=== PATIENT | female | born 1960 | race Caucasian/White ===

== ENCOUNTER → 2019-01-31 | Outpatient (CLI) | payer OTHER ==
--- NOTE | 2019-01-31 09:35 | US ---
EXAMINATION TYPE: US liver DATE OF EXAM: 01/31/2019 COMPARISON: NONE CLINICAL HISTORY: B19.20 viral hepatitis C. EXAM MEASUREMENTS: Liver Length: 12.9 cm Gallbladder Wall: 0.1 cm CBD: 0.5 cm Right Kidney: 10.5 x 3.9 x 4.2 cm Pancreas: Tail obscured by overlying bowel gas Liver: wnl Gallbladder: mobile stones Evidence for sonographic Forbes's sign: no CBD: wnl Right Kidney: lower pole obscured by overlying bowel gas IMPRESSION: 1. Cholelithiasis without sonographic evidence of acute cholecystitis. 2. Visualized portions of the hepatic parenchyma displays a homogeneous echotexture. No discrete mass is seen.
== END | disposition home or self-care (01) ==
LOC: RADUSMAIN 08:22
PROVIDERS: ATTEND Family Medicine
DX: K80.20 Calculus of gallbladder without cholecystitis without obstruction (principal)
CPT/HCPCS: 76705

== ENCOUNTER → 2019-02-26 | Outpatient (CLI) | payer OTHER ==
[2019-02-26 15:50] LABS: HCT 45.9 % (34.0-46.0); HGB 14.7 gm/dL (11.4-16.0); MCH 31.5 pg (25.0-35.0); MCHC 32.1 g/dL (31.0-37.0); Mean Platelet Volume 6.9; Platelet Count 165 k/uL (150-450); RBC 4.68 m/uL (3.80-5.40); RDW 13.7 % (11.5-15.5); WBC 5.2 k/uL (3.8-10.6)
[2019-02-26 16:03] LABS: INR 1.1 (<1.2); Prothrombin Time 11.1 sec (9.0-12.0)
[2019-02-27 01:07] LABS: ALT 137 U/L (8-44); AST 116 U/L (13-35); African American GFR (CKD) 111.5 (60.0-200.0); Albumin/Globulin Ratio 1.39 (1.60-3.17); Alkaline Phosphatase 100 U/L (41-126); Bilirubin, Conjugated <0.20 mg/dL (0.20-0.40); Globulin 3.1 g/dL (1.6-3.3); Total Bilirubin 0.5 mg/dL (0.3-1.2); Total Protein 7.4 g/dL (6.2-8.2)
== END | disposition home or self-care (01) ==
LOC: LABWHC1 15:12
PROVIDERS: ATTEND Physician Assistant
DX: B18.2 Chronic viral hepatitis C (principal)
CPT/HCPCS: 36415; 80076; 82565; 85027; 85610; 87522

== ENCOUNTER → 2019-04-24 | Outpatient (CLI) | payer OTHER | END | disposition home or self-care (01) | LOC: LABWHC1 09:33 | PROVIDERS: ATTEND Surgery Plastic and Reconstructive Surgery | DX: Z01.810 Encounter for preprocedural cardiovascular examination (principal) | CPT/HCPCS: 36415; 93005 ==

== ENCOUNTER 2019-06-13 09:03 | Observation (INO) | payer OTHER ==
[2019-06-11 13:23] VITALS: BMI 30.1
--- NOTE | 2019-06-13 07:36 | P.GSHP ---
History of Present Illness H&P Date: 06/13/19 CHIEF COMPLAINT: Cholecystitis HISTORY OF PRESENT ILLNESS: The patient is a 59-year-old female who presents with history of epigastric including right upper quadrant abdominal pain. She underwent diagnostic studies for her gallbladder. Separately her clinical picture was consistent with cholecystitis. Now she presents for surgical intervention. PAST MEDICAL HISTORY: Please see list PAST SURGICAL HISTORY: Please see list MEDICATIONS: Please see list ALLERGIES: Please see list SOCIAL HISTORY: Please see list FAMILY HISTORY: Please see list REVIEW OF ORGAN SYSTEMS: CONSTITUTIONAL: No reports of fevers or chills. HEENT: Denies any troubles with the vision or hearing. ENDOCRINE: No reports of hypothyroidism. No diabetes. PHYSICAL EXAM: VITAL SIGNS: Afebrile vital signs stable GENERAL: Well-developed pleasant in no acute distress. HEENT: No scleral icterus. Extraocular movements grossly intact. Moist buccal mucosa. NECK: Supple without lymphadenopathy. CHEST: Unlabored respirations. Equal bilateral excursions. CARDIOVASCULAR: Regular rate regular rhythm rhythm. Distal 2+ pulses. ABDOMEN: Soft, nondistended. Tender along the epigastrium and right upper quadrant. MUSCULOSKELETAL: No clubbing, cyanosis, or edema. NEURO: Cranial nerves II to XII within normal limits. No focal or lateralizing signs. PSYCH: Alert and oriented to person, place and time. SKIN: Well-perfused good skin turgor. ASSESSMENT: 1. Epigastric and right upper quadrant abdominal pain 2. Chronic cholecystitis 3. Symptomatic gallstones. PLAN: 1. Will need a robotic cholecystectomy possible open. Benefits and risks were described. 2. Heparin for DVT prophylaxis 5000 units. 3. Antibiotic prophylaxis. Past Medical History Past Medical History: Asthma, GERD/Reflux, Liver Disease Additional Past Medical History / Comment(s): Current Hepatitis, to start tx after surgery. Gallstones. History of Any Multi-Drug Resistant Organisms: None Reported Past Surgical History: Section Additional Past Surgical History / Comment(s): C-S x2. Past Anesthesia/Blood Transfusion Reactions: No Reported Reaction Smoking Status: Former smoker - Past Family History Mother Family Medical History: No Reported History Medications and Allergies Home Medications Medication Instructions Recorded Confirmed Type Albuterol Sulfate [Proair Hfa] 1 - 2 puff INHALATION Q6HR PRN 06/11/19 06/11/19 History Allergies Allergy/AdvReac Type Severity Reaction Status Date / Time morphine Allergy Swelling Verified 06/11/19 12:55 Penicillins Allergy Rash/Hives Verified 06/11/19 12:55 Sulfa (Sulfonamide Allergy Rash/Hives Verified 06/11/19 12:55 Antibiotics)
[~2019-06-13 09:03] MED LIST: ACETAMINOPHEN TAB 500 MG TAB PO STA; GABAPENTIN 300 MG CAP PO STA; HEPARIN SODIUM,PORCINE 5,000 UNIT/ML 1 ML VIAL SQ ONE; INDOCYANINE GREEN 25 MG VIAL IV STA; SCOPOLAMINE 1.5MG/72HR PATCH TRANSDERM STA
[2019-06-13] MEDS: LACTATED RINGERS 1,000 ML IV SCH ×2 (09:24→14:59)
[2019-06-13] MEDS ORDERED: LIDOCAINE 1% 20 ML VIAL (10MG/ML) FOR IV START INTRADERMA ONE (09:24)
[2019-06-13] MEDS ORDERED: DEXAMETHASONE SOD PHOS (MDV) 100 MG/10 ML VIAL IV ONE ×2 (09:30→09:32)
[2019-06-13] MEDS ORDERED: ONDANSETRON 4 MG/2 ML VIAL IVP ONE ×3 (09:30→12:50)
[2019-06-13 09:33] LABS: Basophils # (A) 0.1 k/uL (0-0.2); Basophils % (A) 1 %; Eosinophils # (A) 0.2 k/uL (0-0.7); Eosinophils % (A) 3 %; HCT 44.9 % (34.0-46.0); HGB 15.1 gm/dL (11.4-16.0); Lymphocytes # (A) 2.3 k/uL (1.0-4.8); Lymphocytes % (A) 35 %; MCH 31.7 pg (25.0-35.0); MCHC 33.5 g/dL (31.0-37.0); MCV 94.5 fL (80.0-100.0); Mean Platelet Volume 8.2; Monocytes # (A) 0.3 k/uL (0-1.0); Monocytes % (A) 5 %; Neutrophils # (A) 3.5 k/uL (1.3-7.7); Neutrophils % (A) 53 %; Platelet Count 191 k/uL (150-450); RBC 4.75 m/uL (3.80-5.40); RDW 13.5 % (11.5-15.5); WBC 6.6 k/uL (3.8-10.6)
[2019-06-13 09:50] LABS: ALT 111 U/L (4-34); AST 121 U/L (14-36); African American GFR (CKD) >90 (>60 ml/min/1.73 sqM); Albumin 4.3 g/dL (3.5-5.0); Alkaline Phosphatase 91 U/L (38-126); Anion Gap 9 mmol/L; Blood Urea Nitrogen 14 mg/dL (7-17); Calcium 9.3 mg/dL (8.4-10.2); Carbon Dioxide 23 mmol/L (22-30); Chloride 109 mmol/L (98-107); Glucose 100 mg/dL (74-99); Non-African American GFR(CKD) >90 (>60 ml/min/1.73 sqM); Potassium 4.4 mmol/L (3.5-5.1); Sodium 141 mmol/L (137-145); Total Bilirubin 0.8 mg/dL (0.2-1.3); Total Protein 8.6 g/dL (6.3-8.2)
[2019-06-13] MEDS ORDERED: LIDOCAINE 1% INJ 10MG/ML (20 ML MDV) ONE (09:51)
[2019-06-13] MEDS ORDERED: MIDAZOLAM 2 MG/2 ML VIAL ONE (09:51)
[2019-06-13] MEDS ORDERED: PHENYLEPHRINE-0.9% NACL SYG 1 MG/10 ML SYRINGE ONE (09:51)
[2019-06-13] MEDS ORDERED: HYDROmorphone (PF) 1 MG/ML ONE (09:51)
[2019-06-13] MEDS ORDERED: GLYCOPYRROLATE 0.2 MG/ML 2 ML VIAL ONE (09:51)
[2019-06-13] MEDS ORDERED: NEOSTIGMINE 1 MG/ML 10 ML VIAL ONE (09:51)
[2019-06-13] MEDS ORDERED: ROCURONIUM BROMIDE 10 MG/ML 5 ML VIAL IV ONE (09:51)
[2019-06-13] MEDS ORDERED: fentaNYL (PF) 50 MCG/ML 2 ML AMP ONE (09:51)
[2019-06-13] MEDS ORDERED: PROPOFOL 10 MG/ML 20 ML VIAL IV ONE (09:51)
[2019-06-13] MEDS ORDERED: BUPIVACAINE (PF) 0.25% 30 ML VIAL SQ ONE ×2 (10:13→10:27)
[2019-06-13] MEDS ORDERED: LACTATED RINGERS 1,000 ML IV ONE (11:15)
[2019-06-13] MEDS: HYDROmorphone 1 MG/ML 1 ML SYRINGE IVP ONE ×4 (11:27→11:45)
[2019-06-13] MEDS ORDERED: KETOROLAC 30 MG/ML 1 ML VIAL IVP ONE (12:36)
[2019-06-13] MEDS ORDERED: METOCLOPRAMIDE 5 MG/ML 2 ML VIAL IVP ONE (13:57)
[2019-06-13] MEDS ORDERED: NALOXONE 0.4 MG/ML 1 ML VIAL IV PRN (14:57)
[2019-06-13] MEDS ORDERED: ONDANSETRON 4 MG/2 ML VIAL IVP PRN (14:57)
[2019-06-13] MEDS ORDERED: METOCLOPRAMIDE 5 MG/ML 2 ML VIAL IVP PRN (14:57)
[2019-06-13] MEDS ORDERED: ACETAMINOPHEN TAB 325 MG TAB PO PRN (14:57)
[2019-06-13] MEDS ORDERED: SODIUM CHLORIDE 0.9% 1,000 ML IV ONE (14:59)
--- NOTE | 2019-06-13 15:02 | P.OP ---
Date of Procedure: 06/13/19 Description of Procedure: SURGEON: OPAL GOODWIN MD PREOPERATIVE DIAGNOSES: 1. Right upper quadrant abdominal pain 2. Symptomatic gallstones 3. Chronic cholecystitis 4. Gastroesophageal reflux disease 5. Hepatitis C 6. Asthma POSTOPERATIVE DIAGNOSES: 1. Right upper quadrant abdominal pain 2. Symptomatic gallstones 3. Chronic cholecystitis 4. Gastroesophageal reflux disease 5. Hepatitis C 6. Asthma 7. Cirrhosis of the liver, macronodular disease OPERATION: Robotic-assisted da Kalpana Xi laparoscopic cholecystectomy, multiport with FIREFLY ESTIMATED BLOOD LOSS: 5 mL. SPECIMENS REMOVED: Gallbladder. COMPLICATIONS: None. OPERATIVE FINDINGS: 1. Chronic cholecystitis 2. Macronodular liver disease INDICATIONS: The patient is a 59-year-old female who presents with cholelcystitis. Surgical intervention with a laparoscopic cholecystectomy was described at [facility] including injury to the biliary tree, bleeding, infection, need for further surgery. Informed consent was obtained. Robotic assisted laparoscopic approach was described. Benefits and risks of the procedure including but not limited to bleeding, infection, injury to the biliary tree was described. Informed consent was obtained. DESCRIPTION OF PROCEDURE: Patient was brought to the operating room, placed in supine position. After general induction, the abdomen had been prepped and draped in standard sterile fashion. The robotic da Kalpana XI system was primed. After a timeout protocol was performed, the patient had been prepped and draped in standard sterile fashion. The patient was injected with indocyanine green. A 5 mm 0 degrees laparoscopic trocar entry was performed along the left upper quadrant. The abdomen insufflated to 15 mmHg pressure which was tolerated well. Diagnostic laparoscopy demonstrated no injury to bowel viscera or mesentery. The liver surface was unremarkable. Next, two 8 mm robotic ports were placed along the right upper abdomen. The camera 8-mm port was maintained along the epigastrium. Another 8 mm port was placed along the left upper abdominal wall after exchanging the 5 mm port. Please note that the ports were placed at least 10 to 15 cm away from the target anatomy of the gallbladder. The robot was docked along the left lateral abdomen. The patient was repositioned in reverse Trendelenburg position. Using a grasper for arm 3, a grasper for arm 4, including hook cautery for arm 1, the robotic system was docked and primed as described. Instruments were interchanged by the mail handler assistant including hook cautery, Bovie cautery and clip appliers. I had sat at the console. The gallbladder fundus was retracted over the dome of the liver. Initial attention was brought to the infundibulum which was gently retracted in the inferior lateral approach. Using a grasper, the cystic duct including the cystic artery was carefully skeletonized. FIREFLY was used to identify the cystic artery and cystic structures. A critical view of safety was obtained. Large PLASTIC clips were used throughout the entire case. Using a clip health promotion educator 2 clips were placed proximally, and 1 clip was placed between the infundibulum and cystic duct and divided using cautery. Next, the cystic artery was similarly clipped and cauterized. Electro-Bovie cautery was used to remove the gallbladder from the hepatic fossa. Hemostasis was checked and found to be adequate. The robot was undocked. I re-scrubbed into the case. Using a 10 mm Endo Catch bag via the left upper quadrant incision, the specimen was removed from the abdominal cavity. The fascial defect was oversewn using 0 Vicryl Amando Casas of the left upper quadrant All pneumoperitoneum instruments were evacuated from the abdominal cavity. The incisions were reapproximated using 4-0 Monocryl in an interrupted subcuticular fashion. Please note along the trocar sites, local anesthetic was placed as a field block prior to insertion of all instruments. Liquid glue was applied to the skin. At the end of the procedure needle, sponge, and instrument count had been verified correct by the surgical endoscopist. The patient was transferred to postanesthesia care unit in stable condition. Intraoperative films were shared with the patient's family who were very pleased with the level of care. Plan - Discharge Summary Discharge Rx Participant: No New Discharge Prescriptions: New Acetaminophen Tab [Tylenol Tab] 1,000 mg PO Q6HR PRN #30 tablet PRN Reason: Pain No Action Albuterol Sulfate [Proair Hfa] 1 - 2 puff INHALATION Q6HR PRN PRN Reason: ASTHMA Discharge Medication List Albuterol Sulfate [Proair Hfa] 1 - 2 puff INHALATION Q6HR PRN 06/11/19 [History] Acetaminophen Tab [Tylenol Tab] 1,000 mg PO Q6HR PRN #30 tablet 06/13/19 [Rx] Follow up Appointment(s)/Referral(s): Opal Goodwin MD [STAFF PHYSICIAN] - 06/18/19 Patient Instructions/Handouts: *[facility]gery [facility] - (Anesthesia) Discharge Instructions Outpatient Surgery, *[facility] - Scopalamine Patch Instructions, Laparoscopic Cholecystectomy (DC) Activity/Diet/Wound Care/Special Instructions: No lifting over 10 pounds in 2 weeks until Jun 27. May shower. No bath tub soaks for two weeks until Jun 27 Diet as tolerated. No driving while on narcotics. Use Tylenol and ibuprofen or Aleve scheduled for the next 24-48 hours for best pain relief. Use ice along incisions for the today to prevent swelling. Discharge Disposition: HOME SELF-CARE
[2019-06-13] MEDS ORDERED: SCOPOLAMINE 1.5MG/72HR PATCH TRANSDERM ONE (15:30)
[2019-06-13] MEDS ORDERED: DEXAMETHASONE SOD PHOSPHATE 10 MG/ML 1 ML VIAL IV ONE (15:30)
[2019-06-13] MEDS: KETOROLAC 30 MG/ML 1 ML VIAL IVP SCH ×2 (17:08→23:51)
[2019-06-13] MEDS: SIMETHICONE 80 MG CHEWABLE PO SCH ×2 (17:10→21:37)
[2019-06-13] MEDS: D5-0.45% NACL WITH KCL 20MEQ/L 1,000 ML IV SCH (23:51)
[2019-06-14] MEDS: KETOROLAC 30 MG/ML 1 ML VIAL IVP SCH (05:06)
[2019-06-14] MEDS: D5-0.45% NACL WITH KCL 20MEQ/L 1,000 ML IV SCH (05:07)
[2019-06-14 07:31] VITALS: BP 104/60; PULSE 63; RESP 17; TEMP 97.8
[2019-06-14 08:48] LABS: Basophils % (A) 0 %; Eosinophils % (A) 0 %; HCT 42.3 % (34.0-46.0); HGB 13.8 gm/dL (11.4-16.0); Lymphocytes # (A) 1.2 k/uL (1.0-4.8); Lymphocytes % (A) 15 %; MCH 31.6 pg (25.0-35.0); MCHC 32.6 g/dL (31.0-37.0); MCV 96.8 fL (80.0-100.0); Mean Platelet Volume 8.7; Monocytes # (A) 0.4 k/uL (0-1.0); Monocytes % (A) 5 %; Neutrophils # (A) 6.2 k/uL (1.3-7.7); Neutrophils % (A) 78 %; Platelet Count 155 k/uL (150-450); RBC 4.37 m/uL (3.80-5.40); RDW 13.3 % (11.5-15.5)
[2019-06-14 09:09] LABS: ALT 78 U/L (4-34); African American GFR (CKD) >90 (>60 ml/min/1.73 sqM); Anion Gap 9 mmol/L; Blood Urea Nitrogen 10 mg/dL (7-17); Calcium 8.9 mg/dL (8.4-10.2); Carbon Dioxide 20 mmol/L (22-30); Chloride 110 mmol/L (98-107); Glucose 111 mg/dL (74-99); Non-African American GFR(CKD) >90 (>60 ml/min/1.73 sqM); Sodium 139 mmol/L (137-145); Total Bilirubin 0.9 mg/dL (0.2-1.3)
[2019-06-14 09:12] LABS: Potassium 4.8 mmol/L (3.5-5.1)
[2019-06-14 09:13] LABS: AST 90 U/L (14-36); Albumin 3.7 g/dL (3.5-5.0); Alkaline Phosphatase 63 U/L (38-126); Total Protein 7.8 g/dL (6.3-8.2)
[2019-06-14] MEDS: SIMETHICONE 80 MG CHEWABLE PO SCH (10:28)
--- NOTE | 2019-06-14 11:04 | P.DS ---
<Naya Palacio - Last Filed: 06/14/19 11:02> Providers Expected date of discharge: 06/14/19 Hospital Course: 59-year-old female who underwent robotic-assisted laparoscopic cholecystectomy with Dr. Goodwin on 06/13/2019. Patient is doing well postoperatively without any immediate complications. She is tolerating diet without nausea or vomiting. Pain is controlled on oral medications. Vital signs stable. She is stable for discharge home today. Please see EMR for further hospital course details. DISCHARGE DIAGNOSES: 1. Right upper quadrant abdominal pain 2. Symptomatic gallstones 3. Chronic cholecystitis 4. Gastroesophageal reflux disease 5. Hepatitis C 6. Asthma 7. Cirrhosis of the liver, macronodular disease Nurse practitioner note has been reviewed by physician. Signing provider agrees with the documented findings, assessment, and plan of care. Patient Condition at Discharge: Stable Plan - Discharge Summary Discharge Rx Participant: No New Discharge Prescriptions: New Acetaminophen Tab [Tylenol Tab] 1,000 mg PO Q6HR PRN #30 tablet PRN Reason: Pain No Action Albuterol Sulfate [Proair Hfa] 1 - 2 puff INHALATION Q6HR PRN PRN Reason: ASTHMA Discharge Medication List Albuterol Sulfate [Proair Hfa] 1 - 2 puff INHALATION Q6HR PRN 06/11/19 [History] Acetaminophen Tab [Tylenol Tab] 1,000 mg PO Q6HR PRN #30 tablet 06/13/19 [Rx] Follow up Appointment(s)/Referral(s): Opal Goodwin MD [STAFF PHYSICIAN] - 06/18/19 3:00 pm Patient Instructions/Handouts: *[facility] - (Anesthesia) Discharge Instructions Outpatient Surgery, *[facility] - Scopalamine Patch Instructions, Laparoscopic Cholecystectomy (DC) Activity/Diet/Wound Care/Special Instructions: No lifting over 10 pounds in 2 weeks until Jun 27. May shower. No bath tub soaks for two weeks until Jun 27 Diet as tolerated. No driving while on narcotics. Use Tylenol and ibuprofen or Aleve scheduled for the next 24-48 hours for best pain relief. Use ice along incisions for the today to prevent swelling. Discharge Disposition: HOME SELF-CARE <Opal Goodwin - Last Filed: 06/14/19 18:33> Providers Date of admission: 06/14/19 02:26 Attending physician: Opal Goodwin Primary care physician: George Cisneros Hospital Course: LFTs improved prior discharge compared to pre-op labs.
== END 2019-06-14 11:47 | disposition home or self-care (01) ==
LOC: OR 09:03 → 4SSUR 14:18 → OR 06-14 02:26
PROVIDERS: ADMIT Surgery Plastic and Reconstructive Surgery; ATTEND Surgery Plastic and Reconstructive Surgery
DX: K80.10 Calculus of gallbladder with chronic cholecystitis without obstruction (principal); K74.60 Unspecified cirrhosis of liver; K21.9 Gastro-esophageal reflux disease without esophagitis; B19.20 Unspecified viral hepatitis C without hepatic coma; J45.909 Unspecified asthma, uncomplicated; Z88.0 Allergy status to penicillin; Z88.2 Allergy status to sulfonamides; Z91.040 Latex allergy status; Z87.891 Personal history of nicotine dependence; Z79.51 Long term (current) use of inhaled steroids
CPT/HCPCS: 47562; S2900; 80053; 85025; 88304

== ENCOUNTER → 2019-07-19 | Outpatient (CLI) | payer OTHER ==
[2019-07-19 13:04] LABS: HCT 47.1 % (34.0-46.0); HGB 15.3 gm/dL (11.4-16.0); MCH 31.3 pg (25.0-35.0); MCHC 32.6 g/dL (31.0-37.0); MCV 96.1 fL (80.0-100.0); Mean Platelet Volume 7.7; Platelet Count 199 k/uL (150-450); RDW 13.1 % (11.5-15.5); WBC 6.6 k/uL (3.8-10.6)
[2019-07-19 19:53] LABS: Albumin 4.6 g/dL (3.80-4.90); Albumin/Globulin Ratio 1.53 (1.60-3.17); Bilirubin, Conjugated 0.2 mg/dL (0.20-0.40); Bilirubin,Unconjugated 0.4 mg/dL; Total Bilirubin 0.6 mg/dL (0.2-1.2); Total Protein 7.6 g/dL (6.2-8.2)
== END | disposition home or self-care (01) ==
LOC: LABWHC1 11:40
PROVIDERS: ATTEND Physician Assistant
DX: B18.2 Chronic viral hepatitis C (principal)
CPT/HCPCS: 36415; 80076; 85027; 87522

== ENCOUNTER → 2019-11-13 | Outpatient (CLI) | payer OTHER ==
[2019-11-13 12:24] LABS: HCT 47.1 % (34.0-46.0); HGB 14.9 gm/dL (11.4-16.0); MCH 30.9 pg (25.0-35.0); MCHC 31.7 g/dL (31.0-37.0); MCV 97.7 fL (80.0-100.0); Mean Platelet Volume 8.3; Platelet Count 189 k/uL (150-450); RBC 4.82 m/uL (3.80-5.40); RDW 13.8 % (11.5-15.5)
[2019-11-13 18:08] LABS: Hepatitis A Antibody IgM Non-Reactive (Non-Reactive); Hepatitis B Core IgM Non-Reactive (Non-Reactive); Hepatitis B Surface Antigen Non-Reactive (Non-Reactive); Hepatitis C IgG Antibody Reactive (Non-Reactive)
[2019-11-13 18:19] LABS: INR 0.99 (0.90-1.11); Prothrombin Time 10.6 sec (9.9-11.9)
== END | disposition home or self-care (01) ==
LOC: LABWHC1 08:46
PROVIDERS: ATTEND Physician Assistant
DX: B18.2 Chronic viral hepatitis C (principal)
CPT/HCPCS: 36415; 80074; 85027; 85610; 87522

== ENCOUNTER → 2020-08-05 | Outpatient (CLI) | payer OTHER ==
--- NOTE | 2020-08-07 09:51 | MM ---
Reason for exam: screening (asymptomatic). History: Patient is postmenopausal. Physical Findings: A clinical breast exam by your physician is recommended on an annual basis and results should be correlated with mammographic findings. MG Screening Mammo w CAD Bilateral CC and MLO view(s) were taken. No prior studies available for comparison. There are scattered fibroglandular densities. There is no discrete abnormality. No significant changes when compared with prior studies. ASSESSMENT: Negative, BI-RAD 1 RECOMMENDATION: Routine screening mammogram of both breasts in 1 year.
== END | disposition home or self-care (01) ==
LOC: RADMAMWWP 10:48
PROVIDERS: ATTEND Family Medicine
DX: Z12.31 Encounter for screening mammogram for malignant neoplasm of breast (principal); Z78.0 Asymptomatic menopausal state
CPT/HCPCS: 77067

== ENCOUNTER → 2021-02-16 | Outpatient (CLI) | payer OTHER ==
--- NOTE | 2021-02-17 09:09 | XR ---
EXAMINATION TYPE: XR soft tissue neck DATE OF EXAM: 02/16/2021 COMPARISON: NONE HISTORY: Dysphasia TECHNIQUE: 2 view submitted FINDINGS: Prevertebral soft tissue structures are normal. There is normal. Glottis. Radiopaque densit y seen posterior nasopharynx extends in the soft tissues may be related to calcifications seen on the frontal view of the atherosclerotic change of the carotid arteries. Degenerative change of the cervi yamilex spine slight anterior listhesis C5 and C6. Airways patent. IMPRESSION: 1. Airway patent. 2. Suspected atherosclerotic change of the carotid arteries greater on the left.
== END | disposition home or self-care (01) ==
LOC: RADXRMAIN 16:36
PROVIDERS: ATTEND Nurse Practitioner
DX: R47.02 Dysphasia (principal)
CPT/HCPCS: 70360

== ENCOUNTER → 2021-06-16 | Outpatient (CLI) | payer OTHER ==
--- NOTE | 2021-06-17 08:36 | XR ---
EXAMINATION TYPE: XR chest 2V DATE OF EXAM: 06/16/2021 COMPARISON: NONE HISTORY: R06.00, dyspnea and cough TECHNIQUE: Frontal and lateral views of the chest are obtained. FINDINGS: There is no focal air space opacity, pleural effusion, or pneumothorax seen. The cardiac silhouette size is within normal limits. The aorta is dense. Linear area of increased attenuation at the lingula likely reflects scarring, prominent lung volume may be indicative of underlying COPD. The re is bronchial wall thickening. The osseous structures are intact. IMPRESSION: Correlate for bronchitis, follow-up as indicated.
== END | disposition home or self-care (01) ==
LOC: RADXRMAIN 17:04
PROVIDERS: ATTEND Family Medicine
DX: R06.00 Dyspnea, unspecified (principal); R05.9 Cough, unspecified
CPT/HCPCS: 71046

== ENCOUNTER 2021-06-22 10:48 | Inpatient (IN) | payer OTHER ==
[2021-06-22] MEDS ORDERED: ALBUTEROL HFA INHALER INHALATION PRN (11:22)
[2021-06-22] MEDS ORDERED: ACETAMINOPHEN TAB 500 MG TAB PO STA (11:22)
[2021-06-22] MEDS ORDERED: SODIUM CHLORIDE 0.9% 1,000 ML IV ONE (11:24)
--- NOTE | 2021-06-22 12:02 | ED ---
SOB HPI - General Chief Complaint: Shortness of Breath Stated Complaint: JOY Time Seen by Provider: 06/22/21 11:01 Source: patient Mode of arrival: wheelchair Limitations: no limitations - History of Present Illness Initial Comments: Patient is a 61-year-old female past medical history of asthma who presents emergency department with shortness of breath, nausea, vomiting, body aches diarrhea for the past one week. States that she saw Dr. Cisneros in office and was tested for Covid. She was Covid positive. He placed her on antibiotics. She has been using her inhaler as directed however continues to be short of breath and it is getting worse. Patient cannot relate across a room without becoming short of breath. She is previously vaccinated with 2 Pfizer vaccines. Has not had a blister. She denies any chest pain. No history of heart disease. No lower externally swelling. No history of DVT or PE. Patient has had minimal fluid intake. No other alleviating, precipitating factors - Related Data Home Medications Medication Instructions Recorded Confirmed Levofloxacin [Levaquin] 750 mg PO DAILY 06/22/21 06/22/21 guaiFENesin [Mucinex] 1,200 mg PO Q12H PRN 06/22/21 06/22/21 Allergies Allergy/AdvReac Type Severity Reaction Status Date / Time morphine Allergy Swelling Verified 06/22/21 12:12 Penicillins Allergy Rash/Hives Verified 06/22/21 12:12 Sulfa (Sulfonamide Allergy Rash/Hives Verified 06/22/21 12:12 Antibiotics) Review of Systems ROS Statement: Those systems with pertinent positive or pertinent negative responses have been documented in the HPI. ROS Other: All systems not noted in ROS Statement are negative. Past Medical History Past Medical History: Asthma, GERD/Reflux, Liver Disease Additional Past Medical History / Comment(s): Current Hepatitis, to start tx after surgery. Gallstones. History of Any Multi-Drug Resistant Organisms: None Reported Past Surgical History: Section Additional Past Surgical History / Comment(s): C-S x2. Past Anesthesia/Blood Transfusion Reactions: No Reported Reaction Past Psychological History: No Psychological Hx Reported Smoking Status: Former smoker Past Alcohol Use History: Occasional Past Drug Use History: None Reported - Past Family History Mother Family Medical History: No Reported History General Exam Limitations: no limitations Course Vital Signs 06/22/21 06/22/21 06/22/21 10:49 11:03 11:05 Temperature 100.7 F H Pulse Rate 103 H 105 H Respiratory 22 18 20 Rate Blood Pressure 113/63 O2 Sat by Pulse 87 L 90 L Oximetry 06/22/21 12:43 Temperature Pulse Rate 90 Respiratory 22 Rate Blood Pressure 105/72 O2 Sat by Pulse 98 Oximetry Medical Decision Making - Medical Decision Making Upon arrival patient is placed into a trauma 2. History and physical exam is performed. IV is established. Patient is given 1 g of Tylenol, 1 L bolus of normal saline, an albuterol inhaler,4 mgof Zofran and 6 mg of dexamethasone. Patient is saturating 87% on room air. She is placed on 2 L nasal cannula. L aboratory studies are conducted. Chest x-ray demonstrates bilateral interstitial infiltrates. Recommended admission due to the patient's hypoxia for which she did agree to. Spoke with Dr. Cisneros's midlevel who agreed to the admission. She is currently awaiting a bed on the floor - Lab Data Result diagrams: 06/22/21 12:01 06/22/21 12:01 Lab Results 06/22/21 06/22/21 06/22/21 Range/Units 12:01 12:01 12:01 WBC 7.9 (3.8-10.6) k/uL RBC 4.90 (3.80-5.40) m/uL Hgb 16.0 (11.4-16.0) gm/dL Hct 46.8 H (34.0-46.0) % MCV 95.6 (80.0-100.0) fL MCH 32.6 (25.0-35.0) pg MCHC 34.1 (31.0-37.0) g/dL RDW 12.9 (11.5-15.5) % Plt Count 136 L (150-450) k/uL MPV 8.4 Neutrophils % 73 % Lymphocytes % 18 % Monocytes % 6 % Eosinophils % 1 % Basophils % 1 % Neutrophils # 5.8 (1.3-7.7) k/uL Lymphocytes # 1.5 (1.0-4.8) k/uL Monocytes # 0.5 (0-1.0) k/uL Eosinophils # 0.0 (0-0.7) k/uL Basophils # 0.1 (0-0.2) k/uL PT 10.6 (9.0-12.0) sec INR 1.0 (<1.2) APTT 27.7 (22.0-30.0) sec D-Dimer 0.25 (<0.60) mg/L FEU Sodium 132 L (137-145) mmol/L Potassium 3.9 (3.5-5.1) mmol/L Chloride 99 (98-107) mmol/L Carbon Dioxide 25 (22-30) mmol/L Anion Gap 8 mmol/L BUN 9 (7-17) mg/dL Creatinine 0.70 (0.52-1.04) mg/dL Est GFR (CKD-EPI)AfAm >90 (>60 ml/min/1.73 sqM) Est GFR (CKD-EPI)NonAf >90 (>60 ml/min/1.73 sqM) Glucose 103 H (74-99) mg/dL Plasma Lactic Acid Moses (0.7-2.0) mmol/L Calcium 8.7 (8.4-10.2) mg/dL Magnesium 2.1 (1.6-2.3) mg/dL Total Bilirubin 0.8 (0.2-1.3) mg/dL AST 57 H (14-36) U/L ALT 43 H (4-34) U/L Alkaline Phosphatase 60 (38-126) U/L Lactate Dehydrogenase 766 H (313-618) U/L Total Protein 7.5 (6.3-8.2) g/dL Albumin 3.9 (3.5-5.0) g/dL 06/22/21 Range/Units 12:01 WBC (3.8-10.6) k/uL RBC (3.80-5.40) m/uL Hgb (11.4-16.0) gm/dL Hct (34.0-46.0) % MCV (80.0-100.0) fL MCH (25.0-35.0) pg MCHC (31.0-37.0) g/dL RDW (11.5-15.5) % Plt Count (150-450) k/uL MPV Neutrophils % % Lymphocytes % % Monocytes % % Eosinophils % % Basophils % % Neutrophils # (1.3-7.7) k/uL Lymphocytes # (1.0-4.8) k/uL Monocytes # (0-1.0) k/uL Eosinophils # (0-0.7) k/uL Basophils # (0-0.2) k/uL PT (9.0-12.0) sec INR (<1.2) APTT (22.0-30.0) sec D-Dimer (<0.60) mg/L FEU Sodium (137-145) mmol/L Potassium (3.5-5.1) mmol/L Chloride (98-107) mmol/L Carbon Dioxide (22-30) mmol/L Anion Gap mmol/L BUN (7-17) mg/dL Creatinine (0.52-1.04) mg/dL Est GFR (CKD-EPI)AfAm (>60 ml/min/1.73 sqM) Est GFR (CKD-EPI)NonAf (>60 ml/min/1.73 sqM) Glucose (74-99) mg/dL Plasma Lactic Acid Moses 1.1 (0.7-2.0) mmol/L Calcium (8.4-10.2) mg/dL Magnesium (1.6-2.3) mg/dL Total Bilirubin (0.2-1.3) mg/dL AST (14-36) U/L ALT (4-34) U/L Alkaline Phosphatase (38-126) U/L Lactate Dehydrogenase (313-618) U/L Total Protein (6.3-8.2) g/dL Albumin (3.5-5.0) g/dL - EKG Data EKG Comments: EKG demonstrates sinus tachycardia with a ventricular rate of 101. CT interval 194. QRS 11. QTC is 360. ST depression in V1V2. No ST segment elevations Disposition Clinical Impression: Hypoxia, COVID-19, Asthma Disposition: ADMITTED IP TO THIS [facility] Condition: Stable Is patient prescribed a controlled substance at d/c from ED?: No Decision to Admit Reason: Admit from EC Decision Date: 06/22/21 Decision Time: 13:22
[2021-06-22 12:20] LABS: Basophils # (A) 0.1 k/uL (0-0.2); Basophils % (A) 1 %; Eosinophils % (A) 1 %; HCT 46.8 % (34.0-46.0); Lymphocytes # (A) 1.5 k/uL (1.0-4.8); Lymphocytes % (A) 18 %; MCH 32.6 pg (25.0-35.0); MCHC 34.1 g/dL (31.0-37.0); MCV 95.6 fL (80.0-100.0); Mean Platelet Volume 8.4; Monocytes # (A) 0.5 k/uL (0-1.0); Monocytes % (A) 6 %; Neutrophils # (A) 5.8 k/uL (1.3-7.7); Neutrophils % (A) 73 %; Platelet Count 136 k/uL (150-450); RDW 12.9 % (11.5-15.5); WBC 7.9 k/uL (3.8-10.6)
[2021-06-22] MEDS: DEXAMETHASONE SOD PHOSPHATE 10 MG/ML 1 ML VIAL IVP SCH (12:25)
[2021-06-22 12:29] LABS: ALT 43 U/L (4-34); AST 57 U/L (14-36); African American GFR (CKD) >90 (>60 ml/min/1.73 sqM); Albumin 3.9 g/dL (3.5-5.0); Alkaline Phosphatase 60 U/L (38-126); Anion Gap 8 mmol/L; Blood Urea Nitrogen 9 mg/dL (7-17); Calcium 8.7 mg/dL (8.4-10.2); Carbon Dioxide 25 mmol/L (22-30); Chloride 99 mmol/L (98-107); Glucose 103 mg/dL (74-99); LDH 766 U/L (313-618); Magnesium 2.1 mg/dL (1.6-2.3); Non-African American GFR(CKD) >90 (>60 ml/min/1.73 sqM); Potassium 3.9 mmol/L (3.5-5.1); Sodium 132 mmol/L (137-145); Total Bilirubin 0.8 mg/dL (0.2-1.3); Total Protein 7.5 g/dL (6.3-8.2)
[2021-06-22 12:44] LABS: Partial Thromboplastin Time 27.7 sec (22.0-30.0); Prothrombin Time 10.6 sec (9.0-12.0)
--- NOTE | 2021-06-22 12:44 | XR ---
EXAMINATION TYPE: XR chest 1V portable DATE OF EXAM: 06/22/2021 COMPARISON: 06/16/2021 HISTORY: Shortness of breath TECHNIQUE: Single frontal view of the chest is obtained. FINDINGS: Perihilar interstitial changes are seen with infiltrates. Subsegmental changes at lung bas es. Heart size normal. Limited inspiration with no pneumothorax or pleural effusion. Arthropathy shou ldnaima. IMPRESSION: Bilateral interstitial infiltrates correlate for interstitial pneumonia
[2021-06-22] MEDS: SODIUM CHLORIDE 0.9% 1,000 ML IV SCH (13:00)
[2021-06-22] MEDS ORDERED: ONDANSETRON 4 MG/2 ML VIAL IVP PRN (13:22)
[2021-06-22] MEDS ORDERED: IBUPROFEN 400 MG TAB PO PRN (13:22)
[2021-06-22] MEDS ORDERED: NALOXONE 0.4 MG/ML 1 ML VIAL IV PRN (13:22)
[2021-06-22] MEDS ORDERED: ACETAMINOPHEN TAB 325 MG TAB PO PRN (13:22)
--- NOTE | 2021-06-22 16:23 | P.HPIM ---
History of Present Illness H&P Date: 06/22/21 Chief Complaint: Shortness of breath Patient is a pleasant 61-year-old female that presented to the emergency room with shortness of breath. Patient has a pertinent medical history of mild intermittent asthma with infrequent use of albuterol inhaler. Patient was seen in the office on 06/16/2021, tested positive for covid 19. Patient continues to have shortness of breath, nausea, vomiting, body aches, and diarrhea for past 1 week. Chest x-ray shows bilateral interstitial infiltrates consistent with interstitial pneumonia. EKG shows sinus tachycardia. White blood cell count was normal at 7.9, LDH was elevated at 766. Covid 19 pcr was positive again. ALT and AST were also mildly elevated, will repeat tomorrow. Normal saline was ordered, patient was mildly dehydrated. Pulmonology and infectious disease was consulted for the inpatient treatment of COVID-19. Review of Systems Constitutional: Reports chills, Reports fever Ears, nose, mouth and throat: Reports nasal congestion, Reports nasal discharge Cardiovascular: Reports shortness of breath, Denies chest pain, Denies palpitations, Denies syncope Respiratory: Reports cough, Reports cough with sputum, Reports dyspnea, Reports respiratory infections, Reports wheezing Gastrointestinal: Reports diarrhea, Reports nausea, Denies abdominal pain Musculoskeletal: Reports myalgias Integumentary: Denies change in hair/nails, Denies rash Neurological: Denies balance difficulties, Denies loss of vision, Denies visual changes Psychiatric: Denies confusion, Denies memory loss Hematologic/Lymphatic: Denies easy bruising Allergic/Immunologic: Reports wheezing, Denies anaphylaxis Past Medical History Past Medical History: Asthma, GERD/Reflux, Liver Disease Additional Past Medical History / Comment(s): Current Hepatitis, to start tx after surgery. Gallstones. History of Any Multi-Drug Resistant Organisms: None Reported Past Surgical History: Section Additional Past Surgical History / Comment(s): C-S x2. Past Anesthesia/Blood Transfusion Reactions: No Reported Reaction Past Psychological History: No Psychological Hx Reported Smoking Status: Former smoker Past Alcohol Use History: Occasional Past Drug Use History: None Reported - Past Family History Mother Family Medical History: No Reported History Medications and Allergies Home Medications Medication Instructions Recorded Confirmed Type Levofloxacin [Levaquin] 750 mg PO DAILY 06/22/21 06/22/21 History guaiFENesin [Mucinex] 1,200 mg PO Q12H PRN 06/22/21 06/22/21 History Allergies Allergy/AdvReac Type Severity Reaction Status Date / Time morphine Allergy Swelling Verified 06/22/21 12:12 Penicillins Allergy Rash/Hives Verified 06/22/21 12:12 Sulfa (Sulfonamide Allergy Rash/Hives Verified 06/22/21 12:12 Antibiotics) Physical Exam Vitals: Vital Signs Temp Pulse Resp BP Pulse Ox 06/22/21 12:43 90 22 105/72 98 06/22/21 11:05 105 H 20 90 L 06/22/21 11:03 18 06/22/21 10:49 100.7 F H 103 H 22 113/63 87 L Intake and Output 06/22/21 06/22/21 06/22/21 06:59 14:59 22:59 Other: Weight 77.564 kg - Constitutional General appearance: cooperative, mild distress - EENT Eyes: EOMI, PERRLA ENT: normal oropharynx Ears: bilateral: normal - Neck Neck: normal ROM Carotids: bilateral: upstroke normal Thyroid: bilateral: normal size - Respiratory Respiratory: bilateral: rales, rhonchi, wheezing - Cardiovascular Heart rate: 90 Rhythm: regular Heart sounds: normal: S1, S2 radial pulse Peripheral Pulses: bilateral: Normal - Gastrointestinal General gastrointestinal: normal bowel sounds, soft - Integumentary Integumentary: normal turgor - Neurologic Neurologic: CNII-XII intact - Musculoskeletal Musculoskeletal: generalized weakness - Psychiatric Psychiatric: A&O x's 3, appropriate affect, intact judgment & insight Results CBC & Chem 7: 06/22/21 12:01 06/22/21 12:01 Labs: Abnormal Lab Results - Last 24 Hours (Table) 06/22/21 06/22/21 06/22/21 Range/Units 12:01 12:01 14:17 Hct 46.8 H (34.0-46.0) % Plt Count 136 L (150-450) k/uL Sodium 132 L (137-145) mmol/L Glucose 103 H (74-99) mg/dL AST 57 H (14-36) U/L ALT 43 H (4-34) U/L Lactate Dehydrogenase 766 H (313-618) U/L Coronavirus (PCR) Detected A (Not Detectd) Chest x-ray: report reviewed Thrombosis Risk Factor Assmnt - DVT/VTE Prophylaxis DVT/VTE Prophylaxis: Low risk, early ambulation encouraged - Choose All That Apply Any of the Below Risk Factors Present?: Yes Each Factor Represents 1 point: Age 41-60 years, Obesity (BMI >25) Thrombosis Risk Factor Assessment Total Risk Factor Score: 2 Thrombosis Risk Factor Assessment Level: Low Risk Assessment and Plan Assessment: Shortness of breath with Hypoxia COVID-19 infection Dehydration Mild intermittent asthma GI prophylaxis Full code Plan: Continue supplemental oxygen, and taking oxygen saturations above 90% Pulmonology and infectious disease consult for COVID-19 treatment recommendations IV hydration Protonix for GI prophylaxis Continue to monitor vital signs Repeat lab work in the morning Further Recommendations to come based on patient's clinical course Full code Time with Patient: Greater than 30
[2021-06-22] MEDS ORDERED: MELATONIN 5 MG TABLET PO PRN (16:24)
[2021-06-23] MEDS: PANTOPRAZOLE 40 MG/10 ML VIAL IVP SCH (08:34)
[2021-06-23] MEDS: SODIUM CHLORIDE 0.9% 1,000 ML IV SCH ×4 (08:35→22:15)
[2021-06-23] MEDS: DEXAMETHASONE SOD PHOSPHATE 10 MG/ML 1 ML VIAL IVP SCH (08:35)
[2021-06-23 09:26] LABS: Basophils # (A) 0.01 X 10*3/uL (0.00-0.10); Basophils % (A) 0.3 %; Eosinophils # (A) 0 X 10*3/uL (0.04-0.35); Eosinophils % (A) 0 %; HCT 42.9 % (37.2-46.3); HGB 13.9 g/dL (12.0-15.0); Immature Grans, Automated 0.3 %; Lymphocytes # (A) 0.77 X 10*3/uL (0.90-5.00); Lymphocytes % (A) 24.2 %; MCH 30.6 pg (27.0-32.0); MCHC 32.4 g/dL (32.0-37.0); MCV 94.5 fL (80.0-97.0); Mean Platelet Volume 10.5 fL (9.5-12.2); Monocytes # (A) 0.23 X 10*3/uL (0.20-1.00); Monocytes % (A) 7.2 %; NRBC Per 100 WBC 0 /100 WBCS (0.0-0.0); Neutrophils # (A) 2.16 X 10*3/uL (1.80-7.70); Platelet Count 137 X 10*3/uL (140-440); RBC 4.54 X 10*6/uL (4.10-5.20); WBC 3.18 X 10*3/uL (4.50-10.00)
[2021-06-23 09:47] LABS: African American GFR (CKD) 114.8 (60.0-200.0); Anion Gap 11.6 mmol/L (10.00-18.00); BUN/Creat Ratio 17.83 Ratio (12.00-20.00); Blood Urea Nitrogen 10.7 mg/dL (9.0-27.0); C Reactive Protein 4.8 mg/dL (0.00-0.80); Calcium 8.1 mg/dL (8.7-10.3); Carbon Dioxide 20.4 mmol/L (20.0-27.5); Non-African American GFR(CKD) 99.1 (60.0-200.0)
--- NOTE | 2021-06-23 12:10 | P.CONS ---
History of Present Illness - Reason for Consult Consult date: 06/23/21 Covid19 pneumonia Requesting physician: Felipa Hayden - Chief Complaint Shortness of breath or cough x 8 days - History of Present Illness Patient is a 61-year-old female with a past medical history significant for asthma gastroesophageal reflux disease, patient did have a 2 doses of covid19 vaccine back in August 2020 has not received the booster, patient started having some symptoms of a headache around June 08, 2021 when her son and grandson got diagnosed with the covid19, patient mention she tested negative for Covid at that point since then the patient has not been feeling well she been complaining of generalized weakness with body aches also started having a cough which is mostly mild to moderate in intensity with occasional sputum production no hemoptysis denies having any pleuritic chest pain patient did have some nausea but no vomiting had decreased oral intake denies any abdominal pain he did have diarrhea with the center the patient has been evaluated by the ER physician on arrival to the ER the patient had fever 100.7 F patient did have hypoxemia with O2 sats of 87% on room air subsequently requiring a supplemental oxygen currently on 3 L nasal cannula patient did have normal white count with no lymphopenia D-dimer was normal creatinine was normal there was observed mild elevated patient have positive Covid test patient did have a chest x-ray bilateral interstitial infiltrate correlate for interstitial pneumonia patient has been admitted to hospital infectious disease was consulted for further management Review of Systems Positive point has been mentioned in HPI, rest of the systems are negative Past Medical History Past Medical History: Asthma, GERD/Reflux, Liver Disease Additional Past Medical History / Comment(s): Current Hepatitis, to start tx after surgery. Gallstones. History of Any Multi-Drug Resistant Organisms: None Reported Past Surgical History: Section Additional Past Surgical History / Comment(s): C-S x2. Past Anesthesia/Blood Transfusion Reactions: No Reported Reaction Past Psychological History: No Psychological Hx Reported Smoking Status: Former smoker Past Alcohol Use History: Occasional Past Drug Use History: None Reported - Past Family History Mother Family Medical History: No Reported History Medications and Allergies Home Medications Medication Instructions Recorded Confirmed Type Levofloxacin [Levaquin] 750 mg PO DAILY 06/22/21 06/22/21 History guaiFENesin [Mucinex] 1,200 mg PO Q12H PRN 06/22/21 06/22/21 History Allergies Allergy/AdvReac Type Severity Reaction Status Date / Time morphine Allergy Swelling Verified 06/22/21 12:12 Penicillins Allergy Rash/Hives Verified 06/22/21 12:12 Sulfa (Sulfonamide Allergy Rash/Hives Verified 06/22/21 12:12 Antibiotics) Physical Exam Vitals: Vital Signs Temp Pulse Pulse Resp BP BP Pulse Ox 06/23/21 08:00 98.4 F 65 18 159/82 93 L 06/23/21 02:35 97.4 F L 74 16 112/76 96 06/22/21 20:00 17 06/22/21 19:48 97.9 F 89 18 105/71 95 06/22/21 12:43 90 22 105/72 98 06/22/21 11:05 105 H 20 90 L 06/22/21 11:03 18 06/22/21 10:49 100.7 F H 103 H 22 113/63 87 L Intake and Output 06/22/21 06/23/21 06/23/21 22:59 06:59 14:59 Other: # Voids 2 GENERAL DESCRIPTION: Middle-aged female lying in bed, no distress. No tachypnea or accessory muscle of respiration use. HEENT: Shows Pallor , no scleral icterus. Oral mucous membrane is dry. No pharyngeal erythema or thrush NECK: Trachea central, no thyromegaly. LUNGS: Unlabored breathing. Coarse breath sounds bilaterally HEART: S1, S2, regular rate and rhythm. No loud murmur ABDOMEN: Soft, no tenderness , guarding or rigidity, no organomegaly EXTREMITIES: No edema of feet. SKIN: No rash, no masses palpable. NEUROLOGICAL: The patient is awake, alert, oriented x3, mood and affect normal. Results CBC & Chem 7: 06/23/21 05:38 06/23/21 05:38 Labs: Abnormal Lab Results - Last 24 Hours (Table) 06/22/21 06/22/21 06/22/21 Range/Units 12:01 12:01 14:17 Hct 46.8 H (34.0-46.0) % Plt Count 136 L (150-450) k/uL Sodium 132 L (137-145) mmol/L Glucose 103 H (74-99) mg/dL AST 57 H (14-36) U/L ALT 43 H (4-34) U/L Lactate Dehydrogenase 766 H (313-618) U/L Coronavirus (PCR) Detected A (Not Detectd) Assessment and Plan (1) COVID-19 Current Visit: Yes Status: Acute Code(s): U07.1 - COVID-19 SNOMED Code(s): 583869326 Plan: Patient with a covid19 pneumonia in this patient symptoms has been going on since June 08 or in this patient son and grandson diagnosed with COVID-19 on June 08 patient initially was negative however no positive for COVID-19 patient symptom has been going on for more than 1 week and will not qualify for remdesivir per [facility] policy, currently with no evidence of any secondary bacterial pneumonia and the patient is not sick enough or requiring high flow oxygen to qualify for Baricitinab. 2-patient to continue with the dexamethasone 6 mg daily 3-we will add Lovenox zinc and ascorbic acid 4-droplet isolation and respiratory support We will follow on clinical condition and cultures to further adjust medication if needed Thank you for this consultation will follow this patient along with you Time with Patient: Greater than 30
[2021-06-23 12:19] LABS: Erythrocyte Sedimentation Rate 43 mm/Hr (0-30)
--- NOTE | 2021-06-23 12:31 | P.CNPUL ---
History of Present Illness Consult date: 06/23/21 Requesting physician: George Cisneros Reason for consult: dyspnea, cough, hypoxemia, pneumonia, abnormal CXR/CT Chief complaint: Shortness of breath. History of present illness: Pulmonary consult dated 06/23/2021. 61-year-old female who sees Dr. Cisneros as a primary. The patient presented to the emergency department yesterday, with complaints of shortness of breath. The patient has been having shortness of breath, beginning on 06/08/2021. She tested positive for coronavirus on June 15 and her symptoms included shortness of breath, nausea, vomiting, body aches, diarrhea, and general wea kness. Currently, the patient's on 5 L nasal cannula. She's getting saline at KVO. She states that she has been vaccinated area she states that her only major medical problem is mild asthma for which she uses a rescue inhaler as needed. It's also noted that she has a history of gastroesophageal reflux disease, and hepatitis. White count is 3.18, hemoglobin 13.9, hematocrit 42.9, platelet count 137,000. D-dimer was 0.25. Sodium, potassium, chloride, CO2, anion gap, BUN, and creatinine are all normal. LDH was 766. C-reactive protein 4.8. Pro-calcitonin level was 0.05. Chest x-ray showed bilateral infiltrates. Review of Systems REVIEW OF SYSTEMS: CONSTITUTIONAL: Fever and chills, weakness. NEUROLOGIC: [ Negative.] HEENT: [ Negative.] CARDIAC: [Negative.] PULMONARY: Shortness of breath. GI: Nausea, vomiting, and diarrhea. : [Negative.] RHEUMATOLOGIC: [ Negative.] IMMUNOLOGIC: [ Negative.] ENDOCRINE: [Negative. ] DERMATOLOGIC: [Negative.] Past Medical History Past Medical History: Asthma, GERD/Reflux, Liver Disease Additional Past Medical History / Comment(s): Current Hepatitis, to start tx after surgery. Gallstones. History of Any Multi-Drug Resistant Organisms: None Reported Past Surgical History: Section Additional Past Surgical History / Comment(s): C-S x2. Past Anesthesia/Blood Transfusion Reactions: No Reported Reaction Past Psychological History: No Psychological Hx Reported Smoking Status: Former smoker Past Alcohol Use History: Occasional Past Drug Use History: None Reported - Past Family History Mother Family Medical History: No Reported History Medications and Allergies Home Medications Medication Instructions Recorded Confirmed Type Levofloxacin [Levaquin] 750 mg PO DAILY 06/22/21 06/22/21 History guaiFENesin [Mucinex] 1,200 mg PO Q12H PRN 06/22/21 06/22/21 History Allergies Allergy/AdvReac Type Severity Reaction Status Date / Time morphine Allergy Swelling Verified 06/22/21 12:12 Penicillins Allergy Rash/Hives Verified 06/22/21 12:12 Sulfa (Sulfonamide Allergy Rash/Hives Verified 06/22/21 12:12 Antibiotics) Physical Exam Osteopathic Statement: *. No significant issues noted on an osteopathic structural exam other than those noted in the History and Physical/Consult. Vitals: Vital Signs Temp Pulse Pulse Resp BP BP Pulse Ox 06/23/21 11:43 97.7 F 73 18 121/66 96 06/23/21 11:22 96 06/23/21 08:00 98.4 F 65 18 159/82 93 L 06/23/21 02:35 97.4 F L 74 16 112/76 96 06/22/21 20:00 17 06/22/21 19:48 97.9 F 89 18 105/71 95 06/22/21 12:43 90 22 105/72 98 Intake and Output 06/22/21 06/23/21 06/23/21 22:59 06:59 14:59 Other: # Voids 2 No acute distress, oriented 3. HEENT examination is grossly unremarkable. Neck supple. Full range of motion. No adenopathy thyromegaly or neck vein distention. Cardiovascular examination reveals regular rhythm rate. S1-S2 normal. No S3 or S4. No discernible murmur noted. Heart rate 73 bpm. Lungs reveal coarse bilateral rhonchi. No wheezes. Scattered crackles are noted. Rest sounds equal bilaterally. 3 L saturation is 96%. Abdomen soft bowel sounds are heard. No masses or tenderness. Extremities are intact. No cyanosis clubbing or edema. Skin is without rash or lesion. Neurologic examination is brief but nonfocal. Results - Laboratory Findings CBC and BMP: 06/23/21 05:38 06/23/21 05:38 PT/INR, D-dimer PT 10.6 sec (9.0-12.0) 06/22/21 12:01 INR 1.0 (<1.2) 06/22/21 12:01 D-Dimer 0.25 mg/L FEU (<0.60) 06/23/21 05:38 Abnormal lab findings: Abnormal Labs 06/22/21 06/22/21 06/22/21 12:01 12:01 14:17 WBC Hct 46.8 H Plt Count 136 L Lymphocytes # Eosinophils # ESR Sodium 132 L Glucose 103 H Calcium Ferritin AST 57 H ALT 43 H Lactate Dehydrogenase 766 H C-Reactive Protein Coronavirus (PCR) Detected A 06/23/21 06/23/21 05:38 05:38 WBC 3.18 L Hct Plt Count 137 L Lymphocytes # 0.77 L Eosinophils # 0 L ESR 43 H Sodium Glucose 139 H Calcium 8.1 L Ferritin 561.0 H AST ALT Lactate Dehydrogenase C-Reactive Protein 4.80 H Coronavirus (PCR) - Diagnostic Findings Chest x-ray: image reviewed Assessment and Plan Assessment: Acute hypoxemic respiratory failure secondary to coronavirus associated pneumonia. History of mild asthma. History of GERD. History of hepatitis. Previous history of tobacco use. Plan: Plan dated 06/23/2021. The patient's symptoms began back on June 08. She tested positive on June 15. The patient is a candidate for Decadron, Lovenox, and vitamins. She is not a candidate for REM. She is not sick enough to receive a monoclonal antibody against interleukin-6. Additional recommendations and suggestions are forthcoming. Prognosis is certainly guarded. The patient has been previously vaccinated. Time with Patient: Greater than 30
--- NOTE | 2021-06-23 12:58 | P.PN ---
Subjective Progress Note Date: 06/23/21 Principal diagnosis: Shortness of breath Patient is a pleasant 61-year-old female that presented to the emergency room with shortness of breath. Patient has a pertinent medical history of mild intermittent asthma with infrequent use of albuterol inhaler. Patient was seen in the office on 06/16/2021, tested positive for covid 19. Patient continues to have shortness of breath, nausea, vomiting, body aches, and diarrhea for past 1 week. Chest x-ray shows bilateral interstitial infiltrates consistent with interstitial pneumonia. EKG shows sinus tachycardia. White blood cell count was normal at 7.9, LDH was elevated at 766. Covid 19 pcr was positive again. ALT and AST were also mildly elevated, will repeat tomorrow. Normal saline was ordered, patient was mildly dehydrated. Pulmonology and infectious disease was consulted for the inpatient treatment of COVID-19. 06/23/2021 Patient was seen and examined at bedside. Continues to have shortness of breath at rest. Currently requiring 4 L of oxygen. Denies chest pain, abdominal pain, palpitations, headache. Hydration status has improved. C-reactive protein, LDH and ferritin are elevated. Infectious disease and pulmonary consulted for treatment of COVID-19, will follow recommendations Objective - Vital Signs Vital signs: Vital Signs Temp 97.7 F 06/23/21 11:43 Pulse 73 06/23/21 11:43 Resp 18 06/23/21 11:43 BP 121/66 06/23/21 11:43 Pulse Ox 96 06/23/21 11:43 Intake & Output 06/22/21 06/23/21 06/23/21 18:59 06:59 18:59 Weight 77.564 kg Other: # Voids 2 - Constitutional General appearance: Present: cooperative, mild distress - EENT Eyes: Present: EOMI, PERRLA ENT: Present: normal oropharynx Ears: bilateral: normal - Neck Neck: Present: normal ROM Carotids: bilateral: upstroke normal Thyroid: bilateral: normal size - Respiratory Respiratory: bilateral: diminished, rales, rhonchi - Cardiovascular Heart rate: 90 Rhythm: regular Heart sounds: normal: S1, S2 - Peripheral pulses radial pulse Peripheral Pulses: bilateral: Normal - Gastrointestinal General gastrointestinal: Present: normal bowel sounds, soft - Integumentary Integumentary: Present: normal, normal turgor - Neurologic Neurologic: Present: CNII-XII intact - Musculoskeletal Musculoskeletal: Present: gait normal - Psychiatric Psychiatric: Present: A&O x's 3, appropriate affect, intact judgment & insight - Allied health notes Allied health notes reviewed: nursing - Labs CBC & Chem 7: 06/23/21 05:38 06/23/21 05:38 Labs: Abnormal Lab Results - Last 24 Hours (Table) 06/22/21 06/23/21 06/23/21 Range/Units 14:17 05:38 05:38 WBC 3.18 L (4.50-10.00) X 10*3/uL Plt Count 137 L (140-440) X 10*3/uL Lymphocytes # 0.77 L (0.90-5.00) X 10*3/uL Eosinophils # 0 L (0.04-0.35) X 10*3/uL ESR 43 H (0-30) mm/Hr Glucose 139 H (70-110) mg/dL Calcium 8.1 L (8.7-10.3) mg/dL Ferritin 561.0 H (10.0-291.0) ng/mL C-Reactive Protein 4.80 H (0.00-0.80) mg/dL Coronavirus (PCR) Detected A (Not Detectd) - Imaging and Cardiology Chest x-ray: report reviewed Assessment and Plan Assessment: Acute hypoxic respiratory failure covid 19 Dehydration Mild intermittent asthma GI prophylaxis Full code Plan: Continue supplemental oxygen, and titrating oxygen saturations above 90% Pulmonology and infectious disease consult for COVID-19 treatment recommendations IV hydration Protonix for GI prophylaxis Continue to monitor vital signs Further Recommendations to come based on patient's clinical course Full code Time with Patient: Greater than 30
[2021-06-23] MEDS: ASCORBIC ACID 500 MG TAB PO SCH (13:17)
[2021-06-23] MEDS: ZINC SULFATE 220 MG CAP PO SCH (13:17)
[2021-06-23] MEDS: ENOXAPARIN 40 MG/0.4 ML SYRINGE SQ SCH (13:18)
[2021-06-23] MEDS: BENZONATATE 100 MG CAP PO PRN (15:22)
[2021-06-24] MEDS: SODIUM CHLORIDE 0.9% 1,000 ML IV SCH ×3 (06:57→17:59)
[2021-06-24] MEDS: guaiFENesin 600 MG TABLET.ER PO PRN (07:49)
[2021-06-24] MEDS: DEXAMETHASONE SOD PHOSPHATE 10 MG/ML 1 ML VIAL IVP SCH (07:49)
[2021-06-24] MEDS: ASCORBIC ACID 500 MG TAB PO SCH (08:12)
[2021-06-24] MEDS: ZINC SULFATE 220 MG CAP PO SCH (08:12)
[2021-06-24] MEDS: ENOXAPARIN 40 MG/0.4 ML SYRINGE SQ SCH (08:12)
[2021-06-24] MEDS: PANTOPRAZOLE 40 MG/10 ML VIAL IVP SCH (10:03)
--- NOTE | 2021-06-24 12:12 | P.PN ---
Subjective Progress Note Date: 06/24/21 Principal diagnosis: Dyspnea, cough, hypoxia 61-year-old female who sees Dr. Cisneros as a primary. The patient presented to the emergency department yesterday, with complaints of shortness of breath. The patient has been having shortness of breath, beginning on 06/08/2021. She tested positive for coronavirus on June 15 and her symptoms included shortness of breath, nausea, vomiting, body aches, diarrhea, and general weakness. Currently, the patient's on 5 L nasal cannula. She's getting saline at [facility]. She states that she has been vaccinated area she states that her only major medical problem is mild asthma for which she uses a rescue inhaler as needed. It's also noted that she has a history of gastroesophageal reflux disease, and hepatitis. White count is 3.18, hemoglobin 13.9, hematocrit 42.9, platelet count 137,000. D-dimer was 0.25. Sodium, potassium, chloride, CO2, anion gap, BUN, and creatinine are all normal. LDH was 766. C-reactive protein 4.8. Pro-calcitonin level was 0.05. Chest x-ray showed bilateral infiltrates. On 06/24/2021 patient seen in follow-up on medical surgical floor, she is currently on 5 L of oxygen pulse ox is 93%. She states she has exertional dyspnea,, She continues to cough, but she states the phlegm production has slowed down, she is bringing up some clear colored phlegm, vital signs have been stable, no fever overnight. Patient was outside the window for Remdesivir, she continues on Decadron, continues on prophylactic Lovenox, patient is status post completed vaccination with [employer] without the booster. Lung sound today reveal diffuse bilateral rales bilaterally. No new labs today. Appetite is improving, patient is tolerating oral intake, no nausea vomiting or diarrhea, she has IV fluids using at a rate of 130 ML per hour. Overall she seems to be improved slightly from admission. Objective - Vital Signs Vital signs: Vital Signs Temp 97.6 F 06/24/21 10:00 Pulse 67 06/24/21 10:00 Resp 16 06/24/21 10:00 BP 112/73 06/24/21 10:00 Pulse Ox 93 L 06/24/21 10:00 Intake & Output 06/23/21 06/24/21 06/24/21 18:59 06:59 18:59 Intake Total 1040 Output Total 95 Balance -95 1040 Intake: Intake, IV Titration 1040 Amount Sodium Chloride 0.9% 1, 1040 000 ml @ 130 mls/hr IV . Q7H42M [facility] Rx#:[id number] Output: Urine 95 Other: # Voids 2 # Bowel Movements 0 1 - Exam GENERAL EXAM: Alert, very pleasant, 61-year-old white female, on 5 of oxygen with pulse ox of 93% omfortable in no apparent distress. HEAD: Normocephalic/atraumatic. EYES: Normal reaction of pupils, equal size. Conjunctiva pink, sclera white. NOSE: Clear with pink turbinates. THROAT: No erythema or exudates. NECK: No masses, no JVD, no thyroid enlargement, no adenopathy. CHEST: No chest wall deformity. Symmetrical expansion. LUNGS: Equal air entry with diffuse rales CVS: Regular rate and rhythm, normal S1 and S2, no gallops, no murmurs, no rubs ABDOMEN: Soft, nontender. No hepatosplenomegaly, normal bowel sounds, no guardi ng or rigidity. EXTREMITIES: No clubbing, no edema, no cyanosis, 2+ pulses and upper and lower extremities. MUSCULOSKELETAL: Muscle strength and tone normal. SPINE: No scoliosis or deformity SKIN: No rashes CENTRAL NERVOUS SYSTEM: Alert and oriented -3. No focal deficits, tone is normal in all 4 extremities. PSYCHIATRIC: Alert and oriented -3. Appropriate affect. Intact judgment and insight. - Labs CBC & Chem 7: 06/23/21 05:38 06/23/21 05:38 Labs: Abnormal Lab Results - Last 24 Hours (Table) 06/23/21 Range/Units 05:38 ESR 43 H (0-30) mm/Hr Assessment and Plan Plan: Assessment: #1. Acute hypoxic respiratory failure secondary to COVID-19 associated pneumon ia. Onset of symptoms was over 2 weeks prior to presentation, she tested positive on 06/15/2021. Patient did receive vaccination with Pf[employer] vaccine, without the Booster. She was outside the window for Remdesivir. #2. History of mild intermittent bronchial asthma #3. History of GERD/reflux #4. History of hepatitis #5. History of tobacco use Plan: Continue with current medical treatment Continue Decadron 6 mg daily Continue prophylactic Lovenox and multivitamins Wean FiO2 to keep O2 sats at or above 90% Provide incentive spirometer, encouraged the patient to sit up in the chair Increase activity as tolerated Follow-up labs tomorrow including inflammatory markers, d-dimer, CBC and CMP We'll continue to follow her clinical course I performed a history & physical examination of the patient and discussed their management with my nurse practitioner, Tiff Drew. I reviewed the nurse practitioner's note and agree with the documented findings and plan of care. Lung sounds are positive for diffuse crackles throughout the lung chino. The findings and the impression was discussed with the patient. I attest to the documentation by the nurse practitioner. Time with Patient: Less than 30
--- NOTE | 2021-06-24 13:32 | P.PN ---
Subjective Progress Note Date: 06/24/21 Principal diagnosis: Shortness of breath Patient is a pleasant 61-year-old female that presented to the emergency room with shortness of breath. Patient has a pertinent medical history of mild intermittent asthma with infrequent use of albuterol inhaler. Patient was seen in the office on 06/16/2021, tested positive for covid 19. Patient continues to have shortness of breath, nausea, vomiting, body aches, and diarrhea for past 1 week. Chest x-ray shows bilateral interstitial infiltrates consistent with interstitial pneumonia. EKG shows sinus tachycardia. White blood cell count was normal at 7.9, LDH was elevated at 766. Covid 19 pcr was positive again. ALT and AST were also mildly elevated, will repeat tomorrow. Normal saline was ordered, patient was mildly dehydrated. Pulmonology and infectious disease was consulted for the inpatient treatment of COVID-19. 06/23/2021 Patient was seen and examined at bedside. Continues to have shortness of breath at rest. Currently requiring 4 L of oxygen. Denies chest pain, abdominal pain, palpitations, headache. Hydration status has improved. C-reactive protein, LDH and ferritin are elevated. Infectious disease and pulmonary consulted for treatment of COVID-19, will follow recommendations 06/24/2021 Patient was seen and examined, sitting up in chair in no acute distress. Continues to have shortness of breath with exertion. Currently requiring 5 L of oxygen. Denies chest pain, abdominal pain, palpitations. Patient expresses desire to go home, discussed need for home oxygen. Discussed with nurse trying to titrate down supplemental oxygen if tolerated. Continue following with pulmonary and infectious disease recommendations. Objective - Vital Signs Vital signs: Vital Signs Temp 97.6 F 06/24/21 10:00 Pulse 67 06/24/21 10:00 Resp 16 06/24/21 10:00 BP 112/73 06/24/21 10:00 Pulse Ox 93 L 06/24/21 10:00 Intake & Output 06/23/21 06/24/21 06/24/21 18:59 06:59 18:59 Intake Total 1040 Output Total 95 Balance -95 1040 Intake: Intake, IV Titration 1040 Amount Sodium Chloride 0.9% 1, 1040 000 ml @ 130 mls/hr IV . Q7H42M [facility] Rx#:[id number] Output: Urine 95 Other: # Voids 2 # Bowel Movements 0 1 - Constitutional General appearance: Present: cooperative, no acute distress - EENT Eyes: Present: EOMI, PERRLA ENT: Present: normal oropharynx Ears: bilateral: normal - Neck Neck: Present: normal ROM Carotids: bilateral: upstroke normal Thyroid: bilateral: normal size - Respiratory Details: Shortness of breath with exertion Respiratory: bilateral: diminished, rales - Cardiovascular Heart rate: 70 Rhythm: regular Heart sounds: normal: S1, S2 - Peripheral pulses radial pulse Peripheral Pulses: bilateral: Normal - Gastrointestinal General gastrointestinal: Present: normal bowel sounds, soft - Integumentary Integumentary: Present: normal - Neurologic Neurologic: Present: CNII-XII intact - Musculoskeletal Musculoskeletal: Present: gait normal - Psychiatric Psychiatric: Present: A&O x's 3, appropriate affect, intact judgment & insight - Labs CBC & Chem 7: 06/23/21 05:38 06/23/21 05:38 Assessment and Plan Assessment: Acute hypoxic respiratory failure covid 19 associated pneumonia Dehydration Mild intermittent asthma GI prophylaxis History of GERD Full code Plan: Continue supplemental oxygen, and titrating oxygen saturations above 90% Pulmonology and infectious disease consult for COVID-19 treatment recommendations Consult case management to set up home oxygen Protonix for GI prophylaxis Continue to monitor vital signs Further Recommendations to come based on patient's clinical course Full code Time with Patient: Greater than 30
--- NOTE | 2021-06-24 21:43 | P.PN ---
Subjective Progress Note Date: 06/24/21 Principal diagnosis: Covid 19 pneumonia Patient is a 61-year-old female has received only 2 covid vaccination back in August of last year, admitted to the hospital with acute Covid 19 pneumonia. On today's evaluation that is 06/24/2021, the patient denies having any fever or chills, the patient is breathing slightly comfortably on nasal cannula oxygen, the patient denies having any nausea no vomiting no abdominal pain and no diarrhea, no new symptoms Objective - Vital Signs Vital signs: Vital Signs Temp 98.0 F 06/24/21 06:00 Pulse 66 06/24/21 06:00 Resp 20 06/24/21 06:00 BP 104/63 06/24/21 06:00 Pulse Ox 93 L 06/24/21 07:55 Intake & Output 06/23/21 06/24/21 06/24/21 18:59 06:59 18:59 Output Total 95 Balance -95 Output: Urine 95 Other: # Voids 2 # Bowel Movements 0 1 - Exam GENERAL DESCRIPTION: Middle-aged female lying in bed in no distress RESPIRATORY SYSTEM: Unlabored breathing , decreased intensity of breath sounds HEART: S1 S2 regular rate and rhythm , ABDOMEN: Soft , no tenderness EXTREMITIES: No edema feet - Labs CBC & Chem 7: 06/23/21 05:38 06/23/21 05:38 Labs: Abnormal Lab Results - Last 24 Hours (Table) 06/23/21 Range/Units 05:38 ESR 43 H (0-30) mm/Hr Assessment and Plan (1) COVID-19 Current Visit: Yes Status: Acute Code(s): U07.1 - COVID-19 SNOMED Code(s): 095373983 Plan: Patient with a covid19 pneumonia in this patient symptoms has been going on since June 08 or 2 in this patient son and grandson diagnosed with COVID-19 on June 08 patient initially was negative however no positive for COVID-19 patient symptom has been going on for more than 1 week and will not qualify for remdesivir per [facility] policy, currently with no evidence of any secondary bacterial pneumonia and the patient is not sick enough or requiring high flow oxygen to qualify for Baricitinab. 2-patient to continue with the current supportive treatment of dexamethasone 6 mg daily, Lovenox zinc and ascorbic acid 3-droplet isolation and respiratory support Patient did have multiple questions and concerns were answered in Layman terms Time with Patient: Less than 30
[2021-06-25] MEDS: SODIUM CHLORIDE 0.9% 1,000 ML IV SCH (05:31)
[2021-06-25] MEDS: ASCORBIC ACID 500 MG TAB PO SCH (08:55)
[2021-06-25] MEDS: DEXAMETHASONE SOD PHOSPHATE 10 MG/ML 1 ML VIAL IVP SCH (08:55)
[2021-06-25] MEDS: ZINC SULFATE 220 MG CAP PO SCH (08:55)
[2021-06-25] MEDS: PANTOPRAZOLE 40 MG/10 ML VIAL IVP SCH (08:56)
[2021-06-25] MEDS: ENOXAPARIN 40 MG/0.4 ML SYRINGE SQ SCH (08:58)
--- NOTE | 2021-06-25 09:38 | XR ---
EXAMINATION TYPE: XR chest 1V portable DATE OF EXAM: 06/25/2021 COMPARISON: NONE HISTORY: Shortness of breath TECHNIQUE: Single frontal view of the chest is obtained. FINDINGS: A patchy bilateral predominantly interstitial infiltrates again noted stable. Limited insp iration with no pleural effusion or pneumothorax. Heart size normal. Atherosclerotic change aorta. IMPRESSION: Patchy bilateral infiltrate stable.
[2021-06-25 10:22] VITALS: BP 132/68; PULSE 90; RESP 18; TEMP 97.9
[2021-06-25 11:01] LABS: African American GFR (CKD) 114.8 (60.0-200.0); Albumin 3.6 g/dL (3.8-4.9); Albumin/Globulin Ratio 1.5 (1.60-3.17); Anion Gap 13.1 mmol/L (10.00-18.00); BUN/Creat Ratio 23.5 Ratio (12.00-20.00); Blood Urea Nitrogen 14.1 mg/dL (9.0-27.0); Calcium 8.6 mg/dL (8.7-10.3); Carbon Dioxide 21.9 mmol/L (20.0-27.5); Globulin 2.4 g/dL (1.6-3.3); Non-African American GFR(CKD) 99.1 (60.0-200.0); Potassium 3.8 mmol/L (3.5-5.5); Total Bilirubin 0.2 mg/dL (0.30-1.20)
[2021-06-25 11:07] LABS: Basophils # (A) 0.01 X 10*3/uL (0.00-0.10); Basophils % (A) 0.1 %; Eosinophils # (A) 0 X 10*3/uL (0.04-0.35); Eosinophils % (A) 0 %; HCT 42.8 % (37.2-46.3); HGB 13.9 g/dL (12.0-15.0); Immature Grans, Automated 0.7 %; Lymphocytes # (A) 0.98 X 10*3/uL (0.90-5.00); Lymphocytes % (A) 8.9 %; MCH 30.8 pg (27.0-32.0); MCHC 32.5 g/dL (32.0-37.0); MCV 94.9 fL (80.0-97.0); Mean Platelet Volume 10.5 fL (9.5-12.2); Monocytes # (A) 0.72 X 10*3/uL (0.20-1.00); Monocytes % (A) 6.6 %; NRBC Per 100 WBC 0 /100 WBCS (0.0-0.0); Neutrophils # (A) 9.16 X 10*3/uL (1.80-7.70); Neutrophils % (A) 83.7 %; Platelet Count 207 X 10*3/uL (140-440); RBC 4.51 X 10*6/uL (4.10-5.20); WBC 10.95 X 10*3/uL (4.50-10.00)
[2021-06-25] MEDS: guaiFENesin 600 MG TABLET.ER PO PRN (12:28)
[2021-06-25] MEDS: BENZONATATE 100 MG CAP PO PRN (12:29)
--- NOTE | 2021-06-25 13:50 | P.DS ---
Providers Date of admission: 06/22/21 13:32 Expected date of discharge: 06/25/21 Attending physician: George Cisneros Consults: 06/22/21 13:23 Consult Physician Urgent Consulting Provider: Jerry Smith Consult Reason/Comments: hypoxic resp failure, covid infection Do you want consulting provider notified?: Yes 06/22/21 15:34 Consult Physician Routine Consulting Provider: Nohemi Phillips Consult Reason/Comments: covid 19 Do you want consulting provider notified?: Yes Primary care physician: George Cisneros [place] [facility] Course: Patient is a pleasant 61-year-old female that presented to the emergency room with shortness of breath. Patient has a pertinent medical history of mild intermittent asthma with infrequent use of albuterol inhaler. Patient was seen in the office on 06/16/2021, tested positive for covid 19. Patient continues to have shortness of breath, nausea, vomiting, body aches, and diarrhea for past 1 week. Chest x-ray shows bilateral interstitial infiltrates consistent with interstitial pneumonia. EKG shows sinus tachycardia. White blood cell count was normal at 7.9, LDH was elevated at 766. Covid 19 pcr was positive again. ALT and AST were also mildly elevated, will repeat tomorrow. Normal saline was ordered, patient was mildly dehydrated. Pulmonology and infectious disease was consulted for the inpatient treatment of COVID-19. 06/23/2021 Patient was seen and examined at bedside. Continues to have shortness of breath at rest. Currently requiring 4 L of oxygen. Denies chest pain, abdominal pain, palpitations, headache. Hydration status has improved. C-reactive protein, LDH and ferritin are elevated. Infectious disease and pulmonary consulted for treatment of COVID-19, will follow recommendations 06/24/2021 Patient was seen and examined, sitting up in chair in no acute distress. Continues to have shortness of breath with exertion. Currently requiring 5 L of oxygen. Denies chest pain, abdominal pain, palpitations. Patient expresses desire to go home, discussed need for home oxygen. Discussed with nurse trying to titrate down supplemental oxygen if tolerated. Continue following with pulmonary and infectious disease recommendations. 06/25/2021 Patient was seen and examined at bedside, reports improvement of shortness of breath. Still experiencing dyspnea with activity. Was weaned down to 3 L of oxygen. Denies chest pain, palpitations, chills. Infectious disease and pulmonary cleared patient for discharge. Infectious disease recommended Decadron 6 mg daily for 7 days, zinc and vitamin C at discharge. Home oxygen ordered, patient educated on need for home oxygen. Stable for discharge today Assessment: Acute hypoxic respiratory failure covid 19 associated pneumonia Dehydration, resolved Mild intermittent asthma GI prophylaxis History of GERD Full code Health Concerns: Asthma, recovery from Covid-19, requiring oxygen at home Pertinent Studies: Chest x-ray on 06/22/2021 found bilateral interstitial infiltrates consistent with interstitial pneumonia Repeat chest x-ray on 06/25/2021 found patchy bilateral infiltrates stable EKG on admission showed sinus tachycardia with a ventricular rate of 100 Patient Condition at Discharge: Stable Plan - Discharge Summary Discharge Rx Participant: No New Discharge Prescriptions: New Dexamethasone 6 mg PO DAILY 7 Days #7 tablet Zinc Sulfate [Orazinc] 220 mg PO DAILY 14 Days #14 capsule Ascorbic Acid [Vitamin C] 1,000 mg PO DAILY 14 Days #14 tablet Discontinued Levofloxacin [Levaquin] 750 mg PO DAILY guaiFENesin [Mucinex] 1,200 mg PO Q12H PRN PRN Reason: Congestion Discharge Medication List Ascorbic Acid [Vitamin C] 1,000 mg PO DAILY 14 Days #14 tablet 06/25/21 [Rx] Dexamethasone 6 mg PO DAILY 7 Days #7 tablet 06/25/21 [Rx] Zinc Sulfate [Orazinc] 220 mg PO DAILY 14 Days #14 capsule 06/25/21 [Rx] Follow up Appointment(s)/Referral(s): George Cisneros MD [Primary Care Provider] - 1-2 days [facility] [NON-STAFF] - As Needed (oxygen ) Patient Instructions/Handouts: Using Oxygen at Home (DC) Discharge Disposition: HOME SELF-CARE
--- NOTE | 2021-06-25 17:49 | P.PN ---
Subjective Progress Note Date: 06/25/21 61-year-old female who sees Dr. Cisneros as a primary. The patient presented to the emergency department yesterday, with complaints of shortness of breath. The patient has been having shortness of breath, beginning on 06/08/2021. She tested positive for coronavirus on June 15 and her symptoms included shortness of breath, nausea, vomiting, body aches, diarrhea, and general weakness. Currently, the patient's on 5 L nasal cannula. She's getting saline at [facility]. She states that she has been vaccinated area she states that her only major medical problem is mild asthma for which she uses a rescue inhaler as needed. It's also noted that she has a history of gastroesophageal reflux disease, and hepatitis. White count is 3.18, hemoglobin 13.9, hematocrit 42.9, platelet count 137,000. D-dimer was 0.25. Sodium, potassium, chloride, CO2, anion gap, BUN, and creatinine are all normal. LDH was 766. C-reactive protein 4.8. Pro-calcitonin level was 0.05. Chest x-ray showed bilateral infiltrates. On 06/24/2021 patient seen in follow-up on medical surgical floor, she is currently on 5 L of oxygen pulse ox is 93%. She states she has exertional dyspnea,, She continues to cough, but she states the phlegm production has slowed down, she is bringing up some clear colored phlegm, vital signs have been stable, no fever overnight. Patient was outside the window for Remdesivir, she continues on Decadron, continues on prophylactic Lovenox, patient is status post completed vaccination with [employer] without the booster. Lung sound today reveal diffuse bilateral rales bilaterally. No new labs today. Appetite is improving, patient is tolerating oral intake, no nausea vomiting or diarrhea, she has IV fluids using at a rate of 130 ML per hour. Overall she seems to be improved slightly from admission. The patient was seen today 06/25/2021 in follow-up on the regular medical floor. She is currently resting comfortably in bed. Awake and alert in no acute distress. She is maintaining O2 saturations in the 90s on 3 L/m per nasal cannula. She's been afebrile. Hemodynamically stable. White count 10.9. Hemoglobin 13.9. Sodium 139. Potassium 3.8. Creatinine 0.6. She was continued on Decadron, Lovenox, vitamin supplements. She is doing well and hoping to go home. Objective - Vital Signs Vital signs: Vital Signs Temp 97.9 F 06/25/21 10:00 Pulse 90 06/25/21 10:00 Resp 18 06/25/21 10:00 BP 132/68 06/25/21 10:00 Pulse Ox 94 L 06/25/21 10:00 Intake & Output 06/24/21 06/25/21 06/25/21 18:59 06:59 18:59 Intake Total 1871 2360 Output Total 95 Balance 1871 2265 Intake: Intake, IV Titration 1040 360 Amount Sodium Chloride 0.9% 1, 1040 360 000 ml @ 130 mls/hr IV . Q7H42M [facility] Rx#:[id number] Oral 831 2000 Output: Urine 95 Other: # Voids 4 # Bowel Movements 1 - Exam GENERAL EXAM: Alert, pleasant 61-year-old female patient, on 3 L nasal cannula, comfortable in no apparent distress. HEAD: Normocephalic. EYES: Normal reaction of pupils, equal size. NOSE: Clear with pink turbinates. THROAT: No erythema or exudates. NECK: No masses, no JVD. CHEST: No chest wall deformity. LUNGS: Equal air entry with faint crackles in the posterior bases. CVS: S1 and S2 normal with no audible murmur, regular rhythm. ABDOMEN: No hepatosplenomegaly, normal bowel sounds, no guarding or rigidity. SPINE: No scoliosis or deformity SKIN: No rashes CENTRAL NERVOUS SYSTEM: No focal deficits, tone is normal in all 4 extremities. EXTREMITIES: There is no peripheral edema. No clubbing, no cyanosis. Peripheral pulses are intact. - Labs CBC & Chem 7: 06/25/21 04:34 06/25/21 04:34 Labs: Abnormal Lab Results - Last 24 Hours (Table) 06/25/21 06/25/21 Range/Units 04:34 04:34 WBC 10.95 H (4.50-10.00) X 10*3/uL Immature Gran # 0.08 H (0.00-0.04) X 10*3/uL Neutrophils # 9.16 H (1.80-7.70) X 10*3/uL Eosinophils # 0 L (0.04-0.35) X 10*3/uL BUN/Creatinine Ratio 23.50 H (12.00-20.00) Ratio Glucose 111 H (70-110) mg/dL Calcium 8.6 L (8.7-10.3) mg/dL Total Bilirubin 0.20 L (0.30-1.20) mg/dL Total Protein 6.0 L (6.2-8.2) g/dL Albumin 3.6 L (3.8-4.9) g/dL Albumin/Globulin Ratio 1.50 L (1.60-3.17) g/dL Assessment and Plan Assessment: 1 Acute hypoxemic respiratory failure secondary to COVID-19 pneumonia 2 History of mild intermittent bronchial asthma 3 Gastroesophageal reflux disease 4 History of hepatitis 5 History of tobacco use Plan: The patient was seen and evaluated Labs reviewed Cleared for discharge from the pulmonary standpoint May require home oxygen Continue Decadron for total of 6 days Continue to utilize the incentive spirometer Follow-up in our office in 3-4 weeks I, the cosigning physician, performed a history & physical examination of the patient. Lungs sounds faint crackles in the posterior bases. Maintaining good O2 saturations in the 90s on 3 L/m per nasal cannular. I discussed the assessment and plan of care with my nurse practitioner, Sandee Ferrer. I attest to the above note as dictated by her. I have personally seen and examined the patient, performed the documentation and the assessment and plan as written. Number of minutes spent on the visit: 10.
== END 2021-06-25 15:21 | disposition home or self-care (01) | DRG 177 ==
LOC: EC 10:48 → 4SSUR 13:32
PROVIDERS: ADMIT Family Medicine; ATTEND Family Medicine
PROC: 3E0333Z Introduction of Anti-inflammatory into Peripheral Vein, Percutaneous Approach (ICD-10-PCS; principal; 2021-06-22)
DX: U07.1 COVID-19 (principal); J12.82 Pneumonia due to coronavirus disease 2019; J96.01 Acute respiratory failure with hypoxia; E86.0 Dehydration; J45.20 Mild intermittent asthma, uncomplicated; K21.9 Gastro-esophageal reflux disease without esophagitis; Z87.891 Personal history of nicotine dependence; Z88.5 Allergy status to narcotic agent; Z88.0 Allergy status to penicillin; Z88.2 Allergy status to sulfonamides
CPT/HCPCS: 36415; 71045; 80048; 80053; 82728; 83605; 83615; 83735; 84145; 85025; 85379; 85610; 85652; 85730; 86140; 87635; 93005; 94760; 96360; 99285

== ENCOUNTER → 2021-07-09 | Outpatient (CLI) | payer OTHER ==
--- NOTE | 2021-07-09 15:21 | XR ---
EXAMINATION TYPE: XR chest 2V DATE OF EXAM: 07/09/2021 COMPARISON: Chest x-ray 06/25/2021 HISTORY: Dyspnea TECHNIQUE: Frontal and lateral views of the chest are obtained. FINDINGS: Bilateral patchy interstitial and airspace disease is again noted suggestive of Covid infe ction. No evident pneumothorax or pleural effusion. Cardiac mediastinal silhouette is stable. Aorta i s dense. IMPRESSION: Correlate for pneumonia
== END | disposition home or self-care (01) ==
LOC: RADXRMAIN 14:40
PROVIDERS: ATTEND Family Medicine
DX: R06.00 Dyspnea, unspecified (principal)
CPT/HCPCS: 71046

== ENCOUNTER → 2023-01-21 | Outpatient (CLI) | payer OTHER ==
[2023-01-23 06:47] LABS: HCV Qualitative Result Not detected (Not detected); HCV Quant Log <1.08 (<1.08); HCV Quantitative Result <12 IU/mL (<12)
== END | disposition home or self-care (01) ==
LOC: LABWHC1 08:58
PROVIDERS: ATTEND Internal Medicine
DX: R76.8 Other specified abnormal immunological findings in serum (principal)
CPT/HCPCS: 36415; 82105; 87522

== ENCOUNTER → 2023-02-07 | Outpatient (CLI) | payer OTHER ==
--- NOTE | 2023-02-08 08:20 | MM ---
Reason for Exam: Screening (asymptomatic). Last mammogram was performed 2 year(s) and 7 month(s) ago. Patient History: Menarche at age 13. First Full-Term at age 22. Postmenopausal. Maternal grandmother had breast cancer, age 75. Risk Values: Vane 5 year model risk: 1.3%. NCI Lifetime model risk: 6.4%. Prior Study Comparison: 08/05/2020 Bilateral Screening Mammogram, [facility]. Tissue Density: There are scattered fibroglandular densities. Findings: Analyzed By CAD. There is no suspicious group of microcalcifications or new suspicious mass in either breast. Overall Assessment: Negative, BI-RAD 1 Management: Screening Mammogram of both breasts in 1 year. A clinical breast exam by your physician is recommended on an annual basis and results should be correlated with mammographic findings. Note on Vane scores and lifetime risk: 1. A Vane score greater than 3% is considered moderate risk. If this is the case, consider specialist referral to assess eligibility for a risk reducing agent. If overall lifetime risk for the development of breast cancer is 20% or higher, the patient may qualify for future screening with alternating mammogram and breast MRI. Electronically signed and approved by: Talha Nicole D.O.
== END | disposition home or self-care (01) ==
LOC: RADMAMWWP 06:59
PROVIDERS: ATTEND Internal Medicine
DX: Z12.31 Encounter for screening mammogram for malignant neoplasm of breast (principal); Z78.0 Asymptomatic menopausal state; Z80.3 Family history of malignant neoplasm of breast
CPT/HCPCS: 77067

== ENCOUNTER → 2023-02-16 | Outpatient (CLI) | payer OTHER ==
--- NOTE | 2023-02-16 13:56 | US ---
EXAMINATION TYPE: US liver DATE OF EXAM: 02/16/2023 COMPARISON: NONE CLINICAL INDICATION: Female, 62 years old with history of Z86.19 PERSONAL HISTORY OF OTHER INFECTIOUS AND PA; hep c TECHNIQUE: Multiple sonographic images of the right upper quadrant are obtained. FINDINGS: EXAM MEASUREMENTS: Liver Length: 16.7 cm Gallbladder: Surgically absent CBD: .6 cm Right Kidney: 9.9 x 4.0 x 3.6 cm Pancreas: The head and tail is obscured by bowel gas shadowing. Visualized pancreatic body shows no gross abnormal body. Liver: Diffuse increased echogenicity with far field attenuation. Gallbladder: Surgically absent Evidence for sonographic Forbes's sign: no CBD: Upper limits of normal. Right Kidney: No hydronephrosis or masses seen IMPRESSION: 1. Moderate to severe hepatic steatosis. Appropriate clinical management advised. 2. Status post cholecystectomy. 3. Bile duct borderline caliber at 6 mm, acceptable given patient's age and postcholecystectomy statu s.
== END | disposition home or self-care (01) ==
LOC: RADUSWWP 11:00
PROVIDERS: ATTEND Internal Medicine
DX: K76.0 Fatty (change of) liver, not elsewhere classified (principal); Z86.19 Personal history of other infectious and parasitic diseases; Z90.49 Acquired absence of other specified parts of digestive tract
CPT/HCPCS: 76705

== ENCOUNTER 2023-03-14 06:29 | Day surgery (SDC) | payer OTHER ==
[2023-03-10 15:37] VITALS: BMI 30.9
[~2023-03-14 06:29] MED LIST changes: -ACETAMINOPHEN TAB 500 MG TAB PO STA; -GABAPENTIN 300 MG CAP PO STA; -HEPARIN SODIUM,PORCINE 5,000 UNIT/ML 1 ML VIAL SQ ONE; -INDOCYANINE GREEN 25 MG VIAL IV STA; +LACTATED RINGERS 1,000 ML IV SCH; +LIDOCAINE 1% (10MG/ML) FOR IV START INTRADERMA PRN; -SCOPOLAMINE 1.5MG/72HR PATCH TRANSDERM STA
[2023-03-14] MEDS ORDERED: LACTATED RINGERS 1,000 ML IV ONE (06:52)
[2023-03-14 06:55] VITALS: TEMP 97.3
[2023-03-14] MEDS ORDERED: PROPOFOL 10 MG/ML 20 ML VIAL IV ONE (07:23)
[2023-03-14] MEDS ORDERED: LIDOCAINE 1% INJ 10MG/ML (20 ML MDV) ONE (07:23)
--- NOTE | 2023-03-14 07:39 | P.PCN ---
Date of Procedure: 03/14/23 Procedure(s) Performed: BRIEF HISTORY: Patient is a 61-year-old pleasant male scheduled for an elective colonoscopy as a part of screening for colon cancer/positive cologuard. PROCEDURE PERFORMED: Colonoscopy with biopsy and snare polypectomy. PREOPERATIVE DIAGNOSIS: Screening for colon cancer/positive cologuard. IV sedation per Anesthesia. PROCEDURE: After informed consent was obtained, the patient, was brought into the endoscopy unit. IV sedation was administered by Anesthesia under continuous monitoring. Digital rectal examination was normal. Initially the Olympus CF-160 flexible video colonoscope was then inserted in the rectum, gradually advanced into the cecum without any difficulty. Careful examination was performed as the scope was gradually being withdrawn. Ileocecal valve and the appendiceal orifice were visualized and appeared normal. Prep was excellent. Mucosa of the cecum, ascending colon, appeared normal. In the transverse colon there was a 3 mm sessile polyp that was removed by cold biopsy. Rest of the transverse colon, descending colon, sigmoid colon, and rectum appeared normal. In the distal rectum there was a 1 cm polyp that was removed by snare polypectomy. Scattered sigmoid diverticulosis Retroflexion was performed in the rectum and no lesions were seen. The patient tolerated the procedure well. IMPRESSION: 3 mm transverse colon polyp status post cold biopsy 1 cm rectal polyp status post polypectomy Scattered sigmoidal divereticulosis. RECOMMENDATIONS: Findings of this examination were discussed with the patient as well as a family. She was advised to follow with the biopsy results and if the biopsy result adenoma she can have a repeat colonoscopy in 3 years.
[2023-03-14 08:10] VITALS: BP 133/80; PULSE 80
[2023-03-14 08:11] VITALS: RESP 20
== END 2023-03-14 08:08 | disposition home or self-care (01) ==
LOC: ORWHC2ENDO 06:29
PROVIDERS: ATTEND Internal Medicine Gastroenterology
DX: Z12.11 Encounter for screening for malignant neoplasm of colon (principal); D12.3 Benign neoplasm of transverse colon; D12.8 Benign neoplasm of rectum; J45.909 Unspecified asthma, uncomplicated; K80.20 Calculus of gallbladder without cholecystitis without obstruction; K21.9 Gastro-esophageal reflux disease without esophagitis; R19.5 Other fecal abnormalities; K76.9 Liver disease, unspecified; Z88.5 Allergy status to narcotic agent; Z88.0 Allergy status to penicillin; Z88.2 Allergy status to sulfonamides; Z87.891 Personal history of nicotine dependence; Z79.899 Other long term (current) drug therapy; Z79.51 Long term (current) use of inhaled steroids
CPT/HCPCS: 88305; 45380; 45385; J2001; J2704

== ENCOUNTER → 2023-08-30 | Outpatient (CLI) | payer OTHER ==
[2023-08-31 03:12] LABS: Basophils # (A) 0.05 X 10*3/uL (0.00-0.10); Basophils % (A) 0.6 %; Eosinophils # (A) 0.14 X 10*3/uL (0.04-0.35); Eosinophils % (A) 1.8 %; HCT 43.7 % (37.2-46.3); HGB 13.9 g/dL (12.0-15.0); Lymphocytes # (A) 3.01 X 10*3/uL (0.90-5.00); Lymphocytes % (A) 38.7 %; MCH 29.7 pg (27.0-32.0); MCHC 31.8 g/dL (32.0-37.0); MCV 93.4 FL (80.0-97.0); Monocytes # (A) 0.67 X 10*3/uL (0.20-1.00); Monocytes % (A) 8.6 %; NRBC Per 100 WBC 0 X 10*3/uL (0.00-0.01); Neutrophils # (A) 3.88 X 10*3/uL (1.80-7.70); Platelet Count 276 X 10*3/uL (140-440); RBC 4.68 X 10*6/uL (4.10-5.20); RDW 13.8 % (11.5-14.5); WBC 7.77 X 10*3/uL (4.50-10.00)
[2023-08-31 03:56] LABS: ALT 16 U/L (8-44); AST 19 U/L (13-35); Albumin 4.7 g/dL (3.8-4.9); Albumin/Globulin Ratio 1.81 Ratio (1.60-3.17); Alkaline Phosphatase 72 U/L (41-126); BUN/Creat Ratio 15.43 Ratio (12.00-20.00); Blood Urea Nitrogen 10.8 mg/dL (9.0-27.0); Calcium 10.1 mg/dL (8.7-10.3); Carbon Dioxide 25.4 mmol/L (21.6-31.8); Chloride 102 mmol/L (96-109); Globulin 2.6 g/dL (1.6-3.3); Glucose 84 mg/dL (70-110); Potassium 4.6 mmol/L (3.5-5.5); Sodium 139 mmol/L (135-145); Total Bilirubin <0.2 mg/dL (0.3-1.2); Total Protein 7.3 g/dL (6.2-8.2)
== END | disposition home or self-care (01) ==
LOC: LABWHC1 16:17
PROVIDERS: ATTEND Internal Medicine Gastroenterology
DX: K74.60 Unspecified cirrhosis of liver (principal)
CPT/HCPCS: 36415; 80053; 82105; 85025

== ENCOUNTER → 2023-10-09 | Outpatient (CLI) | payer OTHER ==
--- NOTE | 2023-10-09 20:33 | US ---
EXAMINATION TYPE: US abdomen complete DATE OF EXAM: 10/09/2023 COMPARISON: Ultrasound liver 02/16/2023 CLINICAL INDICATION: Female, 63 years old with history of K74.60 CIRRHOSIS OF LIVER; cirrhosis TECHNIQUE: Multiple sonographic images of the abdomen are obtained. 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 The liver demonstrates diffuse increased attenuation. This appears somewhat limits evaluation for sma ll intrahepatic masses. No gross evidence of mass. No surface nodularity. The intrahepatic portion of the IVC is within normal limits. The abdominal aorta is obscured by overlying bowel gas. Gallbladder is surgically absent. Common bile duct is unremarkable. The visualized portions of the pancreas are homogenous. The spleen is unremarkable. Kidneys are symmetric and free of hydronephrosis. No elizabeth l lesions are seen. IMPRESSION: 1. Hepatic steatosis with noncirrhotic morphology of the liver. 2. Postcholecystectomy changes.
== END | disposition home or self-care (01) ==
LOC: RADUSWWP 07:51
PROVIDERS: ATTEND Internal Medicine Gastroenterology
DX: K76.0 Fatty (change of) liver, not elsewhere classified (principal); K74.60 Unspecified cirrhosis of liver; Z90.49 Acquired absence of other specified parts of digestive tract
CPT/HCPCS: 76700

== ENCOUNTER 2023-11-29 09:06 | Day surgery (SDC) | payer OTHER ==
[2023-11-29] MEDS: IV FLUID CONTINUATION 1,000 ML IV ONE (09:39)
[2023-11-29 09:41] VITALS: TEMP 96.9
[2023-11-29] MEDS: LACTATED RINGERS 1,000 ML IV SCH (09:56)
[2023-11-29] MEDS ORDERED: LIDOCAINE 1% INJ 10MG/ML (20 ML MDV) ONE (10:27)
[2023-11-29] MEDS ORDERED: PROPOFOL 10 MG/ML 20 ML VIAL IV ONE (10:27)
--- NOTE | 2023-11-29 10:34 | P.PCN ---
Date of Procedure: 11/29/23 Procedure(s) Performed: BRIEF HISTORY: Patient is a 63-year-old, pleasant, white female scheduled for an upper endoscopy as a part of screening for esophageal varices. She was diagnosed with liver cirrhosis diagnosed in 2019. PROCEDURE PERFORMED: Esophagogastroduodenoscopy biopsy. PREOPERATIVE DIAGNOSIS: History of liver cirrhosis screening for esophageal varices. IV sedation per anesthesia. PROCEDURE: After informed consent was obtained, the patient was brought into the endoscopy unit. IV sedation was administered by Anesthesia under continuous monitoring. Initially the Olympus GIF-140 video endoscope was inserted into the mouth. Esophagus intubated without any difficulty. It was gradually advanced into the stomach and duodenum and carefully examined. The bulb and the second part of the duodenum appeared normal. The scope at this time was withdrawn to the stomach, adequately insufflated with air, and upon careful examination, mucosa of the antrum had a few patchy areas of erythema consistent with gastritis and biopsies were done from this area. Mucosa of the, body, cardia and the fundus appeared normal. Gastric varices identified. The scope was then withdrawn into the esophagus. The GE junction was located at 39 cm from the incisors. The esophagus appeared normal. No esophageal varices identified. There were no erosions or ulcerations seen and the patient tolerated the procedure well. IMPRESSION: 1. No evidence of gastric or esophageal varices. 2. Mild gastritis. RECOMMENDATIONS: The findings of this examination were discussed with the patient as well as her family.. With the biopsy results. She was advised to have repeat EGD in 3 years to screen for esophageal varices
[2023-11-29 10:44] VITALS: RESP 14
[2023-11-29 10:57] VITALS: BP 128/78; PULSE 68
== END 2023-11-29 11:08 | disposition home or self-care (01) ==
LOC: ORWHC2ENDO 09:06
PROVIDERS: ATTEND Internal Medicine Gastroenterology
DX: K29.50 Unspecified chronic gastritis without bleeding (principal); J45.909 Unspecified asthma, uncomplicated; K21.9 Gastro-esophageal reflux disease without esophagitis; Z87.891 Personal history of nicotine dependence; Z88.0 Allergy status to penicillin; Z88.2 Allergy status to sulfonamides; Z88.5 Allergy status to narcotic agent; Z79.899 Other long term (current) drug therapy
CPT/HCPCS: 88305; 43239; J2001; J2704

== ENCOUNTER → 2024-04-25 | Outpatient (CLI) | payer OTHER ==
--- NOTE | 2024-04-25 10:03 | US ---
EXAMINATION TYPE: US abdomen complete DATE OF EXAM: 04/25/2024 COMPARISON: NONE CLINICAL INDICATION: Female, 63 years old with history of R10.9 UNSPECIFIED ABDOMINAL PAIN; US every 6 months, h/o liver issues, cholecystectomy, no symptoms TECHNIQUE: Grayscale and color Doppler imaging of the abdomen was performed. FINDINGS: EXAM MEASUREMENTS: Liver Length: 14.6 cm Gallbladder Wall: Surgically absent CBD: 0.6 cm, color Doppler imaging was utilized to isolate the common bile duct for measurement. Spleen: 10.0 cm Right Kidney: 9.7 x 3.6 x 4.3 cm Left Kidney: 9.9 x 4.2 x 4.8 cm Pancreas: wnl Liver: wnl Gallbladder: Surgically absent Evidence for sonographic Forbes's sign: no CBD: wnl Spleen: wnl Right Kidney: wnl Left Kidney: wnl Upper IVC: wnl Abd Aorta: wnl IMPRESSION: Postcholecystectomy with no acute abnormality identified. [facility], , 04/25/2024 10:01 AM
[2024-04-25 10:51] LABS: Basophils # (A) 0.04 X 10*3/uL (0.00-0.10); Basophils % (A) 0.7 %; Eosinophils # (A) 0.13 X 10*3/uL (0.04-0.35); Eosinophils % (A) 2.2 %; HGB 14.2 g/dL (12.0-15.0); Lymphocytes # (A) 2.07 X 10*3/uL (0.90-5.00); MCHC 32.3 g/dL (32.0-37.0); MCV 92.8 FL (80.0-97.0); Monocytes # (A) 0.43 X 10*3/uL (0.20-1.00); Monocytes % (A) 7.3 %; NRBC Per 100 WBC 0 X 10*3/uL (0.00-0.01); Neutrophils # (A) 3.23 X 10*3/uL (1.80-7.70); Neutrophils % (A) 54.5 %; Platelet Count 245 X 10*3/uL (140-440); RBC 4.74 X 10*6/uL (4.10-5.20); RDW 13.7 % (11.5-14.5); WBC 5.92 X 10*3/uL (4.50-10.00)
[2024-04-25 15:17] LABS: ALT 17 U/L (8-44); AST 16 U/L (13-35); Albumin 4.4 g/dL (3.8-4.9); Albumin/Globulin Ratio 1.83 Ratio (1.60-3.17); Alkaline Phosphatase 72 U/L (41-126); Blood Urea Nitrogen 10.5 mg/dL (9.0-27.0); Calcium 9.3 mg/dL (8.7-10.3); Carbon Dioxide 24.9 mmol/L (21.6-31.8); Chloride 105 mmol/L (96-109); Globulin 2.4 g/dL (1.6-3.3); Glucose 104 mg/dL (70-110); Potassium 4.7 mmol/L (3.5-5.5); Sodium 140 mmol/L (135-145); Total Bilirubin 0.3 mg/dL (0.3-1.2); Total Protein 6.8 g/dL (6.2-8.2)
== END | disposition home or self-care (01) ==
LOC: RADUSWWP 06:53
PROVIDERS: ATTEND Internal Medicine Gastroenterology
DX: K74.60 Unspecified cirrhosis of liver (principal); Z98.890 Other specified postprocedural states
CPT/HCPCS: 76700; 80053; 82105; 85025

== ENCOUNTER → 2024-09-04 | Outpatient (CLI) | payer OTHER ==
--- NOTE | 2024-09-04 11:35 | XR ---
EXAMINATION TYPE: XR chest 2V DATE OF EXAM: 09/04/2024 10:53 AM COMPARISON: 01/31/2023 CLINICAL INDICATION: Female, 64 years old with history of R05.1 ACUTE COUGH: Shortness of breath TECHNIQUE: XR chest 2V views of the chest are obtained. FINDINGS: Scattered senescent parenchymal changes noted. Hyperinflation compatible with COPD. No evidence for infiltrate. No evidence for atelectasis. Heart size is stable. Mediastinal structures are stable and grossly unremarkable. No evidence for hilar prominence. Degenerative changes dorsal spine. IMPRESSION: 1. No evidence for acute pulmonary disease. [facility], , 09/04/2024 11:33 AM
== END | disposition home or self-care (01) ==
LOC: RADXRMAIN 10:43
PROVIDERS: ATTEND Internal Medicine
DX: R05.1 Acute cough (principal); R06.02 Shortness of breath
CPT/HCPCS: 71046

== ENCOUNTER → 2024-09-26 | Outpatient (CLI) | payer OTHER ==
--- NOTE | 2024-09-27 07:39 | MM ---
Reason for Exam: Screening (asymptomatic). Last mammogram was performed 1 year(s) and 7 month(s) ago. Patient History: Menarche at age 13. First Full-Term at age 22. Postmenopausal. Maternal grandmother had breast cancer, age 75. Risk Values: Vane 5 year model risk: 1.4%. NCI Lifetime model risk: 6.0%. Prior Study Comparison: 08/05/2020 Bilateral Screening Mammogram, [facility]. 02/07/2023 Bilateral MG screening mammo w CAD, [facility]. Tissue Density: There are scattered areas of fibroglandular density. Findings: Analyzed By CAD. Right breast: There is no suspicious group of microcalcifications or new suspicious mass. Left breast: There is no suspicious group of microcalcifications or new suspicious mass. Overall Assessment: Negative, BI-RAD 1 Management: Screening Mammogram of both breasts in [address] [facility] will attempt to contact patient to return for supplemental views and ultrasound if indicated. Patient should continue monthly self-breast exams. A clinical breast exam by your physician is recommended on an annual basis. This exam should not preclude additional follow-up of suspicious palpable abnormalities. Note on Vane scores and lifetime risk: 1. A Vane score greater than 3% is considered moderate risk. If this is the case, consider specialist referral to assess eligibility for a risk reducing agent. 2. If overall lifetime risk for the development of breast cancer is 20% or higher, the patient may qualify for future screening with alternating mammogram and breast MRI. [facility], , 09/27/2024 7:37 AM. Electronically signed and approved by: Jerry Shepard DO
== END | disposition home or self-care (01) ==
LOC: RADMAMWWP 15:48
PROVIDERS: ATTEND Internal Medicine
DX: Z12.31 Encounter for screening mammogram for malignant neoplasm of breast (principal); R92.323 Mammographic fibroglandular density, bilateral breasts; Z78.0 Asymptomatic menopausal state; Z80.3 Family history of malignant neoplasm of breast
CPT/HCPCS: 77067

== ENCOUNTER → 2024-10-29 | Outpatient (CLI) | payer OTHER ==
--- NOTE | 2024-10-29 09:31 | US ---
EXAMINATION TYPE: US liver DATE OF EXAM: 10/29/2024 COMPARISON: US 2023 CLINICAL INDICATION: Female, 64 years old with history of K74.60 CIRRHOSIS OF LIVER; Cirrhosis. [facility] cystectomy. TECHNIQUE: Grayscale and color Doppler imaging of the right upper quadrant. FINDINGS: EXAM MEASUREMENTS: Liver Length: 14.9 cm Gallbladder: Surgically absent CBD: 0.22 cm, color Doppler imaging was utilized to isolate the common bile duct for measurement. Right Kidney: 12.0 x 4.2 x 4.0 cm [employer]IC NOTES: *Exam is limited due to gas. Pancreas: The tail is obscured by bowel gas shadowing. Liver: *Coarsened echotexture. No focal lesion. Gallbladder: Surgically absent. Evidence for sonographic Forbes's sign: No CBD: Appears wnl Right Kidney: No hydronephrosis or masses seen IMPRESSION: 1. Coarsened hepatic echotexture suggesting nonspecific hepatocellular disease. No sonographic eviden ce for hepatoma. 2. Status post cholecystectomy. No biliary ductal dilatation. [facility], , 10/29/2024 9:28 AM
[2024-10-29 10:26] LABS: Basophils # (A) 0.04 X 10*3/uL (0.00-0.10); Basophils % (A) 0.6 %; Eosinophils # (A) 0.21 X 10*3/uL (0.04-0.35); Eosinophils % (A) 3.1 %; HCT 44.1 % (37.2-46.3); HGB 14.1 g/dL (12.0-15.0); Lymphocytes # (A) 2.15 X 10*3/uL (0.90-5.00); MCH 29.7 pg (27.0-32.0); Mean Platelet Volume 10.6 FL (9.5-12.2); Monocytes % (A) 7.4 %; NRBC Per 100 WBC 0 X 10*3/uL (0.00-0.01); Neutrophils # (A) 3.79 X 10*3/uL (1.80-7.70); Neutrophils % (A) 56.5 %; Platelet Count 243 X 10*3/uL (140-440); RBC 4.74 X 10*6/uL (4.10-5.20); RDW 14.4 % (11.5-14.5); WBC 6.72 X 10*3/uL (4.50-10.00)
[2024-10-29 15:31] LABS: ALT 16 U/L (8-44); AST 18 U/L (13-35); Albumin 4.2 g/dL (3.8-4.9); Albumin/Globulin Ratio 1.56 Ratio (1.60-3.17); Alkaline Phosphatase 67 U/L (41-126); BUN/Creat Ratio 23.86 Ratio (12.00-20.00); Blood Urea Nitrogen 16.7 mg/dL (9.0-27.0); Chloride 106 mmol/L (96-109); Globulin 2.7 g/dL (1.6-3.3); Glucose 107 mg/dL (70-110); Potassium 4.5 mmol/L (3.5-5.5); Sodium 138 mmol/L (135-145); Total Bilirubin 0.5 mg/dL (0.3-1.2); Total Protein 6.9 g/dL (6.2-8.2)
== END | disposition home or self-care (01) ==
LOC: RADUSWWP 06:52
PROVIDERS: ATTEND Internal Medicine Gastroenterology
DX: K74.60 Unspecified cirrhosis of liver (principal); Z90.49 Acquired absence of other specified parts of digestive tract
CPT/HCPCS: 76705; 80053; 82105; 85025